=== PATIENT | female | born 2000 | race Caucasian/White ===

== ENCOUNTER 2020-04-22 13:20 | Emergency (ER) | payer MEDICAID, SELFPAY ==
[2020-04-22 13:55] VITALS: BP 143/88; PULSE 111; RESP 18; TEMP 36.2; O2SAT 100; BMI 25.2
--- NOTE | 2020-04-22 15:55 | W.ED.PREGNAN ---
HPI - General: Chief complaint: Abdominal Pain Stated complaint: Vaginal Bleeding/17 wks Time Seen by Provider: 04/22/20 13:58 History of Present Illness: HPI Narrative: 19-year-old female presents emergency room with complaining of some pelvic cramping. She had some vaginal bleeding about 2 weeks ago she is not bleeding at all now it seems to have stopped. She is approximately 14 to 6 weeks . She had recently moved to the area she not established with a new OB yet. Bleeding was very light and brief 2 weeks ago she denies any dysuria urgency or frequency she denies any fever sweats or chills. She has previously had an intrauterine confirmed on ultrasound. MD Complaint: vaginal bleeding (2 weeks ago) Onset (ago): week(s) Pain Consistency: intermittent Location: pelvis (Cramping) Quality: Cramping Relieving factors: none Exacerbating factors: none Vaginal discharge: none Vaginal bleeding: none Patient : Yes OB History - Current : no complications OB History - Previous Pregnancies: miscarriage (First trimester) Associated symptoms: Deny abdominal pain, dyspareunia, dysuria, headache(s), malaise, nausea, rash, seizures, short of breath, syncope, vaginal bleeding, vaginal discharge, visual changes, vomiting or weakness Review of Systems Const: Denies: malaise ENMT: Denies: throat pain, ear or mastoid pain, nasal discharge or nasal congestion Card: Denies: syncope Resp: Denies: dyspnea, productive cough or non-productive cough GI: Denies: abdominal pain, nausea or vomiting : Denies: dysuria, vaginal discharge or dyspareunia Skin/Breast: Denies: rash or pruritus Neuro: Denies: headache(s) Physical Exam Const: COMMON NORMALS: no acute distress GENERAL APPEARANCE: cooperative and comfortable ORIENTATION/CONSCIOUSNESS: Yes awake, Yes oriented to person, Yes oriented to place and Yes oriented to time HENMT: COMMON NORMALS: normocephalic, atraumatic and hearing grossly normal bilaterally HEAD & SCALP: normocephalic and atraumatic Eye: COMMON NORMALS: Equal, round and reactive pupils present, EOMs intact bilaterally, conjunctivae normal and no scleral icterus CONJUNCTIVA: Yes conjunctivae normal PUPIL: Yes Equal, round and reactive pupils present Neck/C-Spine: COMMON NORMALS: full ROM, no lymphadenopathy, supple and no JVD Lymph: LYMPHATIC: no lymphadenopathy noted and no lymphedema noted Resp: COMMON NORMALS: normal respiratory effort, No retractions, No use of accessory muscles and clear to auscultation bilaterally AUSCULTATION: clear to auscultation bilaterally Cardio: COMMON NORMALS: no JVD, regular rate, regular rhythm and No murmurs present (Cardio) RATE: regular rate RHYTHM: regular rhythm GI: COMMON NORMALS: Soft to palpation and No hepatosplenomegaly present AUSCULTATION: Yes normoactive bowel sounds PALPATION: Yes Soft to palpation, No Tenderness to palpation present (GI), No Guarding due to palpation present (GI) and Yes No hepatosplenomegaly present : SPECULUM EXAM - VAGINA: No vaginal bleeding OB/EXTERNAL & SPECULUM: No vaginal bleeding Extremity: COMMON NORMALS: normal to inspection, capillary refill normal, no clubbing, cyanosis or edema, no calf tenderness and no pedal edema Neuro: SENSORIUM/ORIENTATION: Yes oriented to person, Yes oriented to place and Yes oriented to time Skin: COMMON NORMALS: no rashes or lesions noted GENERAL SKIN EXAM: no rashes or lesions noted Course Vital Signs: Vital signs: Vital Signs Temperature 97.2 F L 04/22/20 13:55 Pulse Rate 111 H 04/22/20 13:55 Respiratory Rate 18 04/22/20 13:55 Blood Pressure 143/88 04/22/20 13:55 Pulse Oximetry 100 04/22/20 13:55 MDM - OB/Uterine Contractions MDM Narrative: Medical decision making narrative: Beta-hCG in the normal range heart tones good Rh+ discharge home and will have case management help her set up with a HOME HEALTH ATTENDANT in [facility]. Lab Data: Labs: Lab Results 04/22/20 04/22/20 04/22/20 Range/Units 15:55 15:55 15:55 WBC 11.9 (4.5-13.0) 10^3/ uL RBC 4.44 (4.1-5.3) 10^6/u L Hgb 13.7 (11.5-15.3) g/dL Hct 39.8 (37.0-47.0) % MCV 89.6 (81-99) fL MCH 30.9 (28.0-34.0) pg MCHC 34.4 (30.0-36.0) g/dL RDW 11.9 L (12.1-15.1) % Plt Count 263 (130-400) 10^3/c mm MPV 10.7 H (7.4-10.4) fL Neut % (Auto) 81.2 % Lymph % (Auto) 13.0 % [place] % (Auto) 5.0 % Eos % (Auto) 0.2 % Baso % (Auto) 0.1 % Neut # (Auto) 9.68 H (1.8-8.0) 10^3/u L Lymph # (Auto) 1.6 (1.5-6.5) 10^3/u L [place] # (Auto) 0.6 (0.2-0.9) 10^3/u L Eos # (Auto) 0.0 (0.0-0.8) 10^3/u L Baso # (Auto) 0.0 (0.0-0.1) 10^3/u L Nucleated RBC % (a uto) 0 % Nucleated RBCs # 0.0 /100WBC Sodium 137 (136-145) mmol/L Potassium 3.7 (3.5-5.1) mmol/L Chloride 105 (98-107) mmol/L Carbon Dioxide 21 L (22-29) mmol/L Anion Gap 14.7 (5-19) BUN 6 (6-20) mg/dL Creatinine 0.4 L (0.5-0.9) mg/dL GFR Calculation 205.6 H (90-130) mL/min Glucose 77 (65-115) mg/dL Calculated Osmolal ity 280 L (285-295) mOsm/k g Calcium 9.0 (8.5-10.5) mg/dL Total Bilirubin 0.3 (0.15-1.2) mg/dL AST 18 (0-32) U/L ALT 31 (0-33) U/L Alkaline Phosphata se 76 (35-105) IU/L Total Protein 6.7 (6.6-8.7) g/dL Albumin 3.6 (3.5-5.2) g/dL Globulin 3.1 (1.3-4.6) g/dL Ser , [place] [address].00 mIU/mL Rho(D) Type Positive Discharge Plan Discharge Patient Disposition: Home Clinical Impression: Second trimester Condition: Stable Prescriptions: No Action multivitamin Tablet 1 tab PO DAILY RF: 0 Discharge Orders: Discharge Order (Routine); Ordered 04/22/20 Ordered By: Moose Regalado Activity Restrictions/Additional Instructions: This management will call to assist with establishing with a new will be doctor in [facility]. Coding Level of Care Code ED C Web Developer for Henok Fwd Exam Comprehensive
[2020-04-22 16:09] LABS: Basophils % 0.1 %; Eosinophils % 0.2 %; Hematocrit 39.8 % (37.0-47.0); Hemoglobin 13.7 g/dL (11.5-15.3); Lymphocytes # 1.6 10^3/uL (1.5-6.5); Mean Corpuscular HGB Conc 34.4 g/dL (30.0-36.0); Mean Corpuscular Hemoglobin 30.9 pg (28.0-34.0); Mean Corpuscular Volume 89.6 fL (81-99); Mean Platelet Volume 10.7 fL (7.4-10.4); Monocytes # 0.6 10^3/uL (0.2-0.9); Neutrophils # 9.68 10^3/uL (1.8-8.0); Neutrophils % 81.2 %; Nucleated Red Blood Cells % 0 %; Platelet Count 263 10^3/cmm (130-400); Red Blood Count 4.44 10^6/uL (4.1-5.3); Red Cell Distribution Width 11.9 % (12.1-15.1); White Blood Count 11.9 10^3/uL (4.5-13.0)
--- NOTE | 2020-04-22 16:12 | PC.NURSE ---
heart tones 168 BPM.
[2020-04-22 16:45] LABS: Alanine Aminotransferase 31 U/L (0-33); Albumin Level 3.6 g/dL (3.5-5.2); Alkaline Phosphatase 76 IU/L (35-105); Anion Gap 14.7 (5-19); Aspartate Amino Transferase 18 U/L (0-32); Blood Urea Nitrogen 6 mg/dL (6-20); Carbon Dioxide 21 mmol/L (22-29); Chloride 105 mmol/L (98-107); Globulin 3.1 g/dL (1.3-4.6); Glomerular Filtration Rate 205.6 mL/min (90-130); Glucose 77 mg/dL (65-115); Osmolality Calculated 280 mOsm/kg (285-295); Potassium 3.7 mmol/L (3.5-5.1); Sodium 137 mmol/L (136-145); Total Bilirubin 0.3 mg/dL (0.15-1.2); Total Protein 6.7 g/dL (6.6-8.7)
[2020-04-22 17:30] VITALS: BP 112/80; PULSE 80; RESP 15; O2SAT 97
--- NOTE | 2020-04-23 10:30 | DCPLANNER ---
customer engagement manager had message to schedule a follow up appointment for patient with [facility]. customer engagement manager called the [facility], spoke with Aurelia, gave clinic patients information. customer engagement manager was told that patients information would be printed and reviewed. Clinic will call patient with appointment information.
--- NOTE | 2020-05-03 10:48 | DCPLANNER ---
hair or beauty salon manager called [facility] to confirm that a follow up appointment was scheduled for patient. hair or beauty salon manager was told that clinic called patient and is waiting to patient to get financial clearance or medicaid before being seen. Patient is to call clinic when an appointment can be scheduled.
== END 2020-04-22 17:31 | disposition home or self-care (01) ==
PROVIDERS: Emergency Provider Family Medicine
DX: O26.892 Other specified pregnancy related conditions, second trimester (principal); R10.2 Pelvic and perineal pain; Z3A.17 17 weeks gestation of pregnancy
CPT/HCPCS: 12345; 80053; 84702; 85025; 99282

== ENCOUNTER 2020-06-24 04:57 | Observation (INO) | payer BC, MEDICAID, SELFPAY ==
[2020-06-24] VITALS (37 sets, daily range): BP systolic 110–138; BP diastolic 59–92; PULSE 66–106; RESP 18; TEMP 36.1–36.6; O2SAT 97–100; BMI 26.1
--- NOTE | 2020-06-24 02:45 | USR_ITS ---
PROCEDURE INFORMATION: Exam: US , Limited Exam date and time: 06/24/2020 3:48 AM Age: 19 years old Clinical indication: Lmp or gestational age (in weeks): 26w1d; Antepartum complications; Other: Passing clots; ; Patient HX: PT stated she passed two clots and is still bleeding; Additional info: Bleeding, placenta location. Reportedly has known low placenta from outside exams. TECHNIQUE: Imaging protocol: Real-time ultrasound of the maternal uterus with image documentation. Exam focused on the clinical indication. COMPARISON: No relevant prior studies available. FINDINGS: Single living fetus in variable position. heart activity documented by the technologist, 153 bpm. Amniotic fluid volume appears within normal limits. Anterior placenta. On the provided images, the placenta appears to be low lying versus marginal previa. The orientation/relationship of the placenta with the cervix is not well visualized on transabdominal scanning. Endovaginal scanning might better evaluate, as clinically directed. No other definite/visible placental abnormality on the provided images. Cervical length was estimated with transabdominal scanning, measuring approximately 3.5 cm. No definite cervical canal dilation or fluid on the provided images. measurements were not obtained at this time. Evaluation of anatomy was not performed at this time. No visible maternal adnexal abnormality. The urinary bladder was not completely evaluated/imaged at this time. US/ OB limited [id number] IMPRESSION: 1. Single living fetus, details above. 2. Anterior placenta. Suspect a low lying placenta versus marginal placenta previa. Please see above discussion. 3. Amniotic fluid volume appears within normal limits. 4. Other details discussed above.
[2020-06-24 05:21] LABS: Basophils % 0.2 %; Eosinophils # 0.1 10^3/uL (0.0-0.8); Eosinophils % 0.7 %; Hemoglobin 13.7 g/dL (11.5-15.3); Lymphocytes # 2.4 10^3/uL (1.5-6.5); Lymphocytes % 17.9 %; Mean Corpuscular HGB Conc 34.3 g/dL (30.0-36.0); Mean Corpuscular Hemoglobin 31.6 pg (28.0-34.0); Mean Corpuscular Volume 92.4 fL (81-99); Monocytes # 0.9 10^3/uL (0.2-0.9); Monocytes % 6.7 %; Neutrophils # 9.99 10^3/uL (1.8-8.0); Neutrophils % 74.2 %; Nucleated Red Blood Cells % 0 %; Platelet Count 297 10^3/cmm (130-400); Red Blood Count 4.33 10^6/uL (4.1-5.3); Red Cell Distribution Width 12.6 % (12.1-15.1); White Blood Count 13.5 10^3/uL (4.5-13.0)
[2020-06-24] MEDS: betamethasone susp 6 mg/mL 5 mL 12 MG IM (05:31)
[2020-06-24 05:34] LABS: INR 0.95 (0.8-1.2)
[2020-06-24 05:45] LABS: Alanine Aminotransferase 9 U/L (0-33); Albumin Level 3.6 g/dL (3.5-5.2); Alkaline Phosphatase 75 IU/L (35-105); Anion Gap 12.7 (5-19); Aspartate Amino Transferase 15 U/L (0-32); Blood Urea Nitrogen 7 mg/dL (6-20); Calcium 8.8 mg/dL (8.5-10.5); Carbon Dioxide 23 mmol/L (22-29); Chloride 102 mmol/L (98-107); Globulin 3.4 g/dL (1.3-4.6); Glomerular Filtration Rate 205.6 mL/min (90-130); Glucose 128 mg/dL (65-115); Osmolality Calculated 278 mOsm/kg (285-295); Potassium 3.7 mmol/L (3.5-5.1); Sodium 134 mmol/L (136-145); Total Bilirubin 0.2 mg/dL (0.15-1.2)
[2020-06-24] MEDS: lactated ringers 1,000 ML 999 ML IV ×2 (05:51→07:45)
[2020-06-24] MEDS: dextrose 5%-lactated ringers 1,000 ML 125 ML IV (06:22)
--- NOTE | 2020-06-24 08:40 | P.HP_ITS ---
Providers/Chief Complaint Chief Complaint: Vaginal bleeding History of Present Illness Shannan Valdovinos is a 19 year old at 26.1 weeks gestation by LMP with an ERNESTINE of 09/29/2020 per patient. Her is complicated by low-lying placenta with possible marginal placenta previa with intermittent bleeding throughout . The patient sees Dr. Henrry Carballo in [place] and presented to [facility] in [place], [place] secondary to vaginal bleeding and living closer to our facility. The patient states that she has had spotting every week or so during , however this time she had passed to half dollar size clots vaginally at approximately 1 AM on 06/24/2020. She then had bleeding that continued after this. She has changed her pad 4 times over the last 7 h. It has covered a 4 to 5 in x 1 in area on the pad each time approximately. The patient has started to have contractions over the last couple of hours and are now every 3 to 7 min. She is starting to be able to feel them. Ultrasound shows findings concerning for a marginal placenta previa versus low-lying placenta. No other abnormalities were appreciated. The patient denies fever, chest pain, cough, shortness of breath, nausea, vomiting, diarrhea, constipation, dysuria. She admitted to intercourse the night before this started. Medications/Allergies Home Medications Medication Instructions Recorded Confirmed Last Taken Type multivitamin 1 tab PO DAILY 04/22/20 04/22/20 04/21/20 History + DHA 1 tab PO DAILY 06/24/20 06/24/20 1 Day Ago History ~06/23/20 Allergies Allergy/AdvReac Type Severity Reaction Status Date / Time No Known Allergies Allergy Verified 06/24/20 03:18 PFSH Acute PFSH: Surgical History (Updated 06/24/20 @ 08:52 by Henrry Marte MD) No pertinent past surgical history Female Reproductive History: : 2 Vitals/I&O/Wt Last Vital Signs Temp 97.8 F 06/24/20 06:28 Pulse 75 06/24/20 08:11 BP 114/63 06/24/20 08:11 Pulse Ox 99 06/24/20 04:05 06/23/20 06/24/20 06/24/20 22:59 06:59 14:59 Intake Total 532.8 / 532.8 191.667 / 191.667 Balance 532.8 / 532.8 191.667 / 191.667 Weight last 48 hrs Weight 152 lb Physical Exam Narrative: EXAM NARRATIVE: General: Alert and oriented x3 Eyes: Pupils equal round and reactive to light and accommodation Mouth: Mucous membranes moist, pharynx non-erythematous Cardiac: Regular rate and rhythm without murmurs Lungs: Clear to auscultation bilaterally without wheezes, crackles or rhonchi Abdomen: Soft, non-tender, fundus consistent with gestational age, moderate firmness with contractions. Extremities: Trace edema in the bilateral lower extremities Data : 06/24/20 05:10 06/24/20 05:10 A&P Additional A&P Information The patient is currently having symptoms consistent with a placental abruption with a complication of a marginal placenta previa versus low-lying uterus that is anterior. Currently heart tones are in the mid 150s with moderate variability and good accelerations. It is a category 1 tracing. Contractions are every 3 to 7 minutes. The patient received 1 dose of betamethasone at 5:31 AM on 06/24/2020. She will need another dose in 24 hours. The patient has been given 2 fluid boluses to try to slow down contractions and they have mildly helped, however not significantly. I am concerned that the patient is continuing to have bleeding with contractions and that her risk for delivery is increasing. For this reason I discussed with her the need for transfer to a higher level of care where a NICU is available. The patient is in agreement with this at this time. I will contact the nearest facility and plan for transfer. I will discuss with them if they would like to have terbutaline or another medication started for the contractions. The patient cervix on ultrasound was 3.5 cm in length and ultrasound did not show signs of dilation as a digital exam was not done secondary to her bleeding. All questions were answered. We will proceed with the above plan. Attestations Medical Necessity Statement*: The patient will be transferred secondary to the above. Her stay will not cross 2 midnights here. Coding Level of Care Code Acute Picker Box Operator for Henok Snowden
[2020-06-24] MEDS: NIFEdipine 10 mg Capsule PO (09:19)
--- NOTE | 2020-06-24 10:29 | PC.NURSE ---
Pt left via stretched with [facility] personnel.
== END 2020-06-24 10:29 | disposition intermediate care facility (04) ==
LOC: OPOB 09:05 → OBGYN 09:05
PROVIDERS: Admitting Provider Family Medicine; Visit Provider Family Medicine
DX: O44.42 Low lying placenta NOS or without hemorrhage, second trimester (principal); Z3A.26 26 weeks gestation of pregnancy
CPT/HCPCS: 36415; 76815; 80053; 85025; 85610; 96372; 99211; G0378; J0702

== ENCOUNTER → 2021-05-11 10:24 | Outpatient (BNVA) | payer BC, MEDICAID, SELFPAY | PROVIDERS: Visit Provider Registered Nurse Neonatal Intensive Care | DX: J02.9 Acute pharyngitis, unspecified (principal) | CPT/HCPCS: 87880 ==

== ENCOUNTER → 2021-10-27 11:38 | Outpatient (BNVA) | payer BC, MEDICAID, SELFPAY | PROVIDERS: Visit Provider Registered Nurse Neonatal Intensive Care | DX: J02.0 Streptococcal pharyngitis (principal) | CPT/HCPCS: 87880 ==

== ENCOUNTER → 2021-11-11 10:31 | Outpatient (BNVA) | payer BC, MEDICAID, SELFPAY | PROVIDERS: Visit Provider Registered Nurse Neonatal Intensive Care | DX: J02.0 Streptococcal pharyngitis (principal) | CPT/HCPCS: 87880 ==

== ENCOUNTER → 2021-12-24 10:09 | Outpatient (BNVA) | payer BC, MEDICAID, SELFPAY | PROVIDERS: Visit Provider Registered Nurse Neonatal Intensive Care | DX: J02.9 Acute pharyngitis, unspecified (principal) | CPT/HCPCS: 87071; 87880 ==

== ENCOUNTER → 2021-12-24 10:09 | Outpatient (BNVA) | payer BC, MEDICAID, SELFPAY | PROVIDERS: Visit Provider Registered Nurse Neonatal Intensive Care | DX: Z01.89 Encounter for other specified special examinations (principal); J02.9 Acute pharyngitis, unspecified | CPT/HCPCS: 87071 ==

== ENCOUNTER → 2022-01-14 10:19 | Outpatient (BNVA) | payer BC, MEDICAID, SELFPAY | PROVIDERS: Visit Provider Emergency Medicine | DX: J02.9 Acute pharyngitis, unspecified (principal); B34.9 Viral infection, unspecified | CPT/HCPCS: 87426; 87880 ==

== ENCOUNTER → 2022-01-20 10:35 | Outpatient (BNVA) | payer BC, MEDICAID, SELFPAY | PROVIDERS: PCP Family Medicine; Visit Provider Family Medicine | DX: M94.0 Chondrocostal junction syndrome [Tietze] (principal); R00.2 Palpitations; Z76.89 Persons encountering health services in other specified circumstances | CPT/HCPCS: 80053; 80061; 84443; 85025 ==

== ENCOUNTER 2022-01-24 21:07 | Emergency (ER) | payer BC, MEDICAID, SELFPAY ==
[2022-01-24 21:38] VITALS: BP 151/94; PULSE 92; RESP 16; TEMP 36.9; O2SAT 99; BMI 25.7
[2022-01-24 22:32] LABS: Add Urine Microscopic? YES; Bilirubin Urine Neg (Negative); Blood Urine 3+ (Negative); Glucose Urine UA Norm (Normal); Ketones Urine Negative (Negative); Leukocyte Esterase Urine Negative (Negative); Nitrate Urine Negative (Negative); Protein Urine Neg (Negative); Urine Appearance Clear (CLEAR); Urine Color Yellow (Yellow); Urobilinogen Urine Norm (Negative); pH Urine 5 (5-7)
[2022-01-24 22:33] LABS: Bacteria Urine 1+ /hpf; RBC Urine 0-4 /hpf (0-2); Squamous Epithelial Cell Urine 0-4 /hpf (0-5); WBC Urine 0-4 /hpf (0-5)
[2022-01-24 22:34] LABS: Add Urine Culture? No; Coarse Granular Casts Urine 0-4 /lpf; Mucus Urine 1+ /hpf
== END 2022-01-24 23:06 | disposition left against medical advice (07) ==
LOC: ER 21:14
PROVIDERS: Emergency Medicine; Emergency Provider Family Medicine
DX: Z53.21 Procedure and treatment not carried out due to patient leaving prior to being seen by health care provider (principal)
CPT/HCPCS: 81001; 81025

== ENCOUNTER → 2022-04-29 13:14 | Outpatient (BNVA) | payer BC, MEDICAID, SELFPAY | PROVIDERS: Visit Provider Registered Nurse Neonatal Intensive Care | DX: J02.9 Acute pharyngitis, unspecified (principal) | CPT/HCPCS: 87071; 87880 ==

== ENCOUNTER → 2022-07-17 10:06 | Outpatient (BNVA) | payer BC, MEDICAID, SELFPAY | PROVIDERS: Visit Provider Emergency Medicine | DX: J02.9 Acute pharyngitis, unspecified (principal); J06.9 Acute upper respiratory infection, unspecified | CPT/HCPCS: 87071; 87880 ==

== ENCOUNTER 2022-09-04 08:47 | Emergency (ER) | payer BC, MEDICAID, SELFPAY ==
[2022-09-04 09:09] VITALS: BP 142/92; PULSE 104; RESP 16; TEMP 37.2; O2SAT 99
--- NOTE | 2022-09-04 09:13 | ED_ITS ---
HPI - URI/Sore Throat General: Chief Complaint: Upper Respiratory Infection Stated Complaint: sore throat Time Seen by Provider: 09/04/22 08:49 History of Present Illness: Patient is a 22-year-old female comes to the ED with a sore throat. Symptoms started approximately 5 days ago. She has been having some nasal congestion and drainage as well that causes her to cough sometimes. Denies any fevers, nausea/vomiting, chills, abdominal pain, bladder or bowel symptoms. Associated symptoms: Deny abdominal pain, chills, chest pain, diarrhea, fever(s), headache(s), nasal congestion, nausea or vomiting Review of Systems Const: Denies: fever(s), chills or fatigue Eyes: Denies: change in vision or eye discomfort ENMT: Reports: throat pain and enlarged tonsils; Denies: odynophagia, nasal discharge or nasal congestion Card: Denies: chest pain, palpitations, edema, swelling of feet/ankles, dyspnea on exertion or orthopnea Resp: Denies: dyspnea, productive cough or non-productive cough GI: Denies: abdominal pain, nausea, vomiting, diarrhea, constipation or hematochezia : Denies: flank pain, dysuria or hematuria Musc: Denies: neck pain, back pain or extremity swelling Skin/Breast: Denies: rash or new lesions Neuro: Denies: headache(s), numbness in extremities or weakness in extremities PFSH ED PFSH: Medical History Situational anxiety Surgical History No pertinent past surgical history Family History Mother Smoker Social History Smoking and tobacco status: current every day smoker (vape) Second hand smoke exposure: No Smoking risk assessment/counseling performed?: No Alcohol intake: current Alcohol intake frequency: holidays/special occasions only Desire information about alcohol rehabilitation?: No Counseling given: No Desire information about substance/drug rehabilitation?: No Counseling given: No Adopted: No Caregiver/support person: No Lives independently: Yes Household members: family Housing: House Marital status: Single Number of children: 1 Highest education level completed: High School Graduate service: No Current occupational status: employed Female Reproductive History: Para: 1 Spontaneous abortions: Yes Physical Exam Const: COMMON NORMALS: no acute distress, patient oriented x3 and alert GENERAL APPEARANCE: cooperative and comfortable HENMT: COMMON NORMALS: normocephalic HEAD & SCALP: normocephalic MOUTH: Normal oral and palatal mucosa present THROAT: uvula midline, abnormal tonsil left erythema, exudates and hypertrophy 2+ and posterior oropharynx abnormal edema and erythema Neck/C-Spine: COMMON NORMALS: supple GENERAL: Yes normal visual inspection Resp: COMMON NORMALS: normal respiratory effort, No retractions, No use of accessory muscles and clear to auscultation bilaterally AUSCULTATION: clear to auscultation bilaterally Cardio: COMMON NORMALS: regular rate, regular rhythm, S1 normal heart sound present, S2 normal heart sound present, No gallops present (Cardio), No clicks present (Cardio), No murmurs present (Cardio) and Peripheral pulses 2+ throughout RATE: regular rate RHYTHM: regular rhythm HEART SOUNDS: S1 normal heart sound present and S2 normal heart sound present PERIPHERAL PULSES: Peripheral pulses 2+ throughout GI: COMMON NORMALS: Normal to inspection, nondistended, normoactive bowel sounds present, Soft to palpation, non-tender and no masses PALPATION: Yes Soft to palpation : COMMON NORMALS: Yes no CVA tenderness BLADDER/KIDNEY EXAM: Yes no CVA tenderness Back/Pelvis: COMMON NORMALS: no CVA tenderness Extremity: COMMON NORMALS: normal to inspection Neuro: COMMON NORMALS: patient oriented x3 SENSORIUM/ORIENTATION: Yes alert GAIT: Yes Normal gait present Skin: GENERAL SKIN EXAM: dry skin Course Vital Signs: Vital signs: Vital Signs Temperature 99.0 F 09/04/22 10:14 Pulse Rate 104 H 09/04/22 10:14 Respiratory Rate 16 09/04/22 10:14 Blood Pressure 142/92 09/04/22 10:14 Pulse Oximetry 99 09/04/22 10:14 Oxygen Delivery Me thod 09/04/22 09:09 MDM - URI/Sore Throat Medical Decision Making Patient is a 22-year-old female comes to the ED with a sore throat. Symptoms started approximately 5 days ago. She has been having some nasal congestion and drainage as well that causes her to cough sometimes. Denies any fevers, nausea/vomiting, chills, abdominal pain, bladder or bowel symptoms. Vitals are stable. Posterior oropharynx has edema and erythema and left tonsil is erythema exudate and hypertrophy. Rest of exam is benign and patient appears nontoxic in no acute distress. Strep was negative. Patient was diagnosed with pharyngitis and given the exam findings I would put her on an antibiotic. Follow-up with PCP in the next week for reevaluation. Return to ED precautions given. Patient understood and agreed with plan. Lab Data I reviewed the patient's lab results. Laboratory Results Group A Strep Rapid Negative (Negative) 09/04/22 09:25 Discharge Plan Discharge Patient Disposition: Home Clinical Impression: Pharyngitis Qualifiers: Pharyngitis/tonsillitis etiology: unspecified etiology Qualified Code(s): J02.9 - Acute pharyngitis, unspecified Condition: Stable Prescriptions: New Augmentin 500-125 mg tablet 1 tab PO BID 7 Days Qty: 14 0RF No Action clindamycin phosphate [Cleocin T] 1 % lotion 1 applic topical DAILY Qty: 60 0RF venlafaxine [Effexor XR] 75 mg capsule,extended release 24hr 75 mg PO QAM Qty: 30 0RF propranolol 10 mg tablet 10 mg PO BID Qty: 60 0RF Discharge Orders: Discharge ED (Routine); Ordered 09/04/22 Ordered By: Henrry Rahman Referrals: Leia Gustafson, MARKET ANALYSIS DIRECTOR-C [Primary Care Provider] - Discharge Diet: Regular Discharge Activity: Increase activity as tolerated Patient Instructions: Pharyngitis (ED) Activity Restrictions/Additional Instructions: Follow-up with medical provider as directed. Take medications as prescribed. Return to the ER or your medical provider if condition worsens. Please read and understand discharge instructions. Thank you for choosing [facility] for your healthcare needs today. Please realize this is an emergency room and that we are providing you with a medical screening exam and this may not be complete and all inclusive of all the testing and or work up that you may need to determine your ailment or severity of your illness. It is very important that you follow up as instructed or that you return to the Emergency Department should you have concerns or if your condition changes or worsens in any way. Coding Level of Care Code ED Fireworks Inspector for Henok Snowden
[2022-09-04 09:54] LABS: Rapid Strep A Test Negative (Negative)
[2022-09-04 10:14] VITALS: BP 142/92; PULSE 104; RESP 16; TEMP 37.2; O2SAT 99
== END 2022-09-04 10:15 | disposition home or self-care (01) ==
PROVIDERS: Emergency Provider Physician Assistant; PCP Nurse Practitioner
DX: J02.9 Acute pharyngitis, unspecified (principal); F17.290 Nicotine dependence, other tobacco product, uncomplicated
CPT/HCPCS: 87081; 87880; 99283

== ENCOUNTER → 2023-01-03 10:46 | Outpatient (BNVA) | payer BC, MEDICAID, SELFPAY | PROVIDERS: PCP Nurse Practitioner; Visit Provider Registered Nurse Neonatal Intensive Care | DX: J02.9 Acute pharyngitis, unspecified (principal) | CPT/HCPCS: 87880 ==

== ENCOUNTER → 2023-03-24 11:45 | Outpatient (BNVA) | payer BC, MEDICAID, SELFPAY | PROVIDERS: PCP Nurse Practitioner; Visit Provider Nurse Practitioner | DX: J02.9 Acute pharyngitis, unspecified (principal); J06.9 Acute upper respiratory infection, unspecified | CPT/HCPCS: 87880 ==

== ENCOUNTER → 2023-09-01 13:14 | Outpatient (BNVA) | payer BC, SELFPAY | PROVIDERS: PCP Nurse Practitioner; Visit Provider Nurse Practitioner Women's Health | DX: Z12.4 Encounter for screening for malignant neoplasm of cervix (principal); Z11.3 Encounter for screening for infections with a predominantly sexual mode of transmission | CPT/HCPCS: 87491; 87591; 88175 ==

== ENCOUNTER 2023-09-19 13:05 | Emergency (ER) | payer SELFPAY ==
[2023-09-19 13:10] VITALS: BP 159/108; PULSE 93; RESP 12; TEMP 36.7; O2SAT 98; BMI 26.7
--- NOTE | 2023-09-19 13:16 | XRR_ITS ---
PROCEDURE INFORMATION: Exam: XR Chest Exam date and time: 09/19/2023 2:01 PM Age: 23 years old Clinical indication: Pain; Angina pectoris; Additional info: Chest pain TECHNIQUE: Imaging protocol: Radiologic exam of the chest. Views: 1 view. COMPARISON: No relevant prior studies available. FINDINGS: Lungs: Lungs are clear bilaterally. Pleural spaces: No pleural effusion. No pneumothorax. Heart/Mediastinum: The cardiac silhouette and mediastinal contours are unremarkable. Bones/joints: Unremarkable for age. XR/XR chest 1V portable [id number] IMPRESSION: Negative chest radiograph.
--- NOTE | 2023-09-19 13:17 | ECG_ITS ---
[facility] Test Date: 2023-09-19 Pat Name: Shannan Valdovinos Department: Room: Gender: Female Director Of Epidemiology: : 2000 Requested By: Deanne Rob Order Number: [id number] Naya MD: Tk Anrdade M.D. Measurements Intervals [place] Rate: 90 P: 60 VT: 128 QRS: 77 QRSD: 78 T: 32 QT: 342 QTc: 420 Interpretive Statements SINUS RHYTHM WITH SINUS ARRHYTHMIA NONSPECIFIC ST & T-WAVE ABNORMALITY No previous ECG available for comparison Electronically Signed On 09-20-2023 14:59:17 CDT by Tk Andrade M.D. [id number]
--- NOTE | 2023-09-19 13:21 | ED_ITS ---
HPI - Chest Pain 2 General: Chief Complaint: Chest Pain Stated Complaint: Chest pains Time Seen by Provider: 09/19/23 13:13 History of Present Illness: 23-year-old female who presents emergenc y room with chest pain/tightness some inspiratory discomfort and shortness of breath. Is been present for couple of days now. No cough. No fever. No abdominal pain. No nausea or vomiting. control was initiated a few days ago. Review of Systems 2 Narrative: Constitutional symptoms: Negative except as documented in HPI. Skin symptoms: Negative except as documented in HPI. Eye symptoms: Negative except as documented in HPI. ENMT symptoms: Negative except as documented in HPI. Respiratory symptoms: Negative except as documented in HPI. Cardiovascular symptoms: Negative except as documented in HPI. Gastrointestinal symptoms: Negative except as documented in HPI. Genitourinary symptoms: Negative except as documented in HPI. Musculoskeletal symptoms: Negative except as documented in HPI. Neurologic symptoms: Negative except as documented in HPI. Psychiatric symptoms: Negative except as documented in HPI. Endocrine symptoms: Negative except as documented in HPI. PFSH ED 2 PFSH: Medical History (Updated 09/19/23 @ 14:28 by Deanne Cameron MD) Acne Situational anxiety Surgical History (Updated 09/17/23 @ 11:39 by TEETEE Silva) H/O section Family History Mother Smoker Hypertension Denies family history of Colon cancer Ovarian cancer Diabetes Heart disease Hyperlipidemia Breast cancer Uterine cancer Thyroid disease Stroke Social History Smoking and tobacco/nicotine status: current every day tobacco/nicotine user (vape) Second hand smoke exposure: No Alcohol intake: current Alcohol intake frequency: holidays/special occasions only Substance/Drug Use: never Adopted: No Caregiver/support person: No Lives independently: Yes Household members: family Housing: House Marital status: Single Number of children: 1 Highest education level completed: High School Graduate service: No Current occupational status: employed Female Reproductive History: Para: 1 Spontaneous abortions: Yes Physical Exam 2 Narrative: EXAM NARRATIVE: General: Alert, no acute distress. Skin: Warm, dry. Head: Normocephalic, atraumatic. Neck: Supple, trachea midline. Eye: Extraocular movements are intact. Ears, nose, mouth and throat: mucosa moist. Cardiovascular: Regular, Normal peripheral perfusion. Respiratory: Lungs are clear to auscultation, respirations are non-labored, breath sounds are equal, Symmetrical chest wall expansion. Gastrointestinal: Soft, Nontender, Non distended, Normal bowel sounds. Musculoskeletal: Normal ROM, no deformity. Neurological: Alert and oriented, No focal neurological deficit observed. Psychiatric: Cooperative, appropriate mood & affect. Course 2 Vital Signs: Vital signs: Vital Signs Temperature 98.1 F 09/19/23 13:10 Pulse Rate 93 09/19/23 13:10 Respiratory Rate 12 09/19/23 13:10 Blood Pressure 159/108 09/19/23 13:10 Pulse Oximetry 98 09/19/23 13:10 Oxygen Delivery Me thod Room Air 09/19/23 13:10 MDM - Chest Pain Medical Decision Making Differential diagnosis for patient with chest pain includes but is not limited to and based on the above HPI, review of systems and physical exam: Pneumonia. unstable angina. angina. Acute coronary syndrome / HI. Pulmonary embolism. Costochondritis / musculoskeletal. Pleurisy. Pericarditis. Esophageal spasm. Pancreatis. Cholecystitis. Workup: Lab work, chest X-ray and EKG ordered to evaluate, rule in and rule out above pathologies. Lab Review: Laboratory results were reviewed and interpreted by myself the emergency room physician. No leukocytosis. No anemia. No renal failure. D-dimer is negative. Flu and COVID are negative. EKG: Time 1312 rate 90. Normal sinus rhythm, No ST-T changes, no ectopy, normal MI & QRS intervals, This was reviewed and interpreted by myself the ER physician at 1315. Chest x-ray: No acute process. No infiltrate. No pneumothorax. No cardiomegaly. This was reviewed and interpreted by myself the ER physician. I reviewed the patient's medical record. Reexamination: Patient remained stable. No increased work of breathing. No altered mental status. Lab Data 09/19/23 13:27 09/19/23 13:27 Laboratory Results WBC 8.64 10^3/uL (3.29-11.43) 09/19/23 13:27 RBC 4.78 10^6/uL (3.85-5.65) 09/19/23 13:27 Hgb 14.90 g/dL (11.27-16.99) 09/19/23 13:27 Hct 42.2 % (36-47) 09/19/23 13: MCV 88.3 fl (85-98) 09/19/23 13:27 MCH 31.2 pg (27-33) 09/19/23 13: MCHC 35.3 g/dL (30-55) 09/19/23 13: RDW 11.6 % (12.1-15.1) L 09/19/23 13: Plt Count 304 10^3/cmm (157-399) 09/19/23 13: MPV 9.4 fL (7.4-10.4) 09/19/23 13: Neut % (Auto) 73.6 % 09/19/23 13: Lymph % (Auto) 18.6 % 09/19/23 13: [place] % (Auto) 6.5 % 09/19/23 13: Eos % (Auto) 0.8 % 09/19/23 13: Baso % (Auto) 0.3 % 09/19/23 13: Neut # (Auto) 6.35 10^3/uL (1.8-7.7) 09/19/23 13: Lymph # (Auto) 1.6 10^3/uL (0.8-4.8) 09/19/23 13: [place] # (Auto) 0.6 10^3/uL (0.2-0.9) 09/19/23 13: Eos # (Auto) 0.1 10^3/uL (0.0-0.8) 09/19/23 13: Baso # (Auto) 0.0 10^3/uL (0.0-0.1) 09/19/23 13: Nucleated RBC % (auto) 0 % 09/19/23 13: Nucleated RBCs # 0.0 /100WBC 09/19/23 13: D-Dimer 0.30 ug/mLFEU (0-0.59) 09/19/23 13:27 Sodium 134 mmol/L (136-145) L 09/19/23 13:27 Potassium 3.7 mmol/L (3.5-5.1) 09/19/23 13:27 Chloride 100 mmol/L (98-107) 09/19/23 13:27 Carbon Dioxide 24 mmol/L (22-29) 09/19/23 13:27 Anion Gap 13.7 (5-19) 09/19/23 13:27 BUN 10 mg/dL (6-20) 09/19/23 13:27 Creatinine 0.7 mg/dL (0.5-0.9) 09/19/23 13:27 GFR Calculation 103.7 mL/min (90-130) 09/19/23 13:27 Glucose 110 mg/dL (65-115) 09/19/23 13:27 Calculated Osmolality 278 mOsm/kg (285-295) L 09/19/23 13:27 Calcium 9.5 mg/dL (8.5-10.5) 09/19/23 13:27 Total Bilirubin 0.6 mg/dL (0.15-1.2) 09/19/23 13:27 AST 19 U/L (0-32) 09/19/23 13:27 ALT 40 U/L (0-33) H 09/19/23 13:27 Alkaline Phosphatase 73 U/L (35-105) 09/19/23 13:27 Troponin T Baseline < 6 ng/L (0-10) 09/19/23 13:27 C-Reactive Protein 3.0 mg/L (0.0-4.9) 09/19/23 13:27 Total Protein 7.9 g/dL (6.6-8.7) 09/19/23 13:27 Albumin 4.5 g/dL (3.5-5.2) 09/19/23 13:27 Globulin 3.4 g/dL (1.3-4.6) 09/19/23 13:27 HCG, Qual Negative (Negative) 09/19/23 13:47 Influenza Type A Ag negative (Negative) 09/19/23 13:39 Influenza Type B Ag negative (Negative) 09/19/23 13:39 SARS-CoV-2 Ag (Rapid) negative (Negative) 09/19/23 13:39 XR interpretation done by ED provider, pending radiology final review Other Data Assessment and plan: - Discharged home - Discussed plan with patient. Answered any questions. - Evaluation and treatment of this problem were appropriate in the emergency setting. Discharge Plan Discharge Patient Disposition: Home Clinical Impression: Atypical chest pain Condition: Stable Prescriptions: New dexamethasone 6 mg tablet 6 mg PO DAILY 5 Days Qty: 5 0RF No Action clindamycin phosphate [Cleocin T] 1 % lotion 1 applic topical DAILY Qty: 60 0RF spironolactone 50 mg tablet 50 mg PO BID Qty: 60 5RF YEHUDA (28) 3-0.02 mg tablet 1 tab PO QPM Discharge Orders: Discharge ED (Routine); Ordered 09/19/23 Ordered By: Deanne Cameron Referrals: Leia Gustafson, TEETEE [Primary Care Provider] - (You have been screened and evaluated and felt safe for discharge. Health conditions do change or evolve sometimes and as such it is important that you follow up with your Primary Doctor to be re checked, 3-5 days is a general good time frame for follow up. You are always welcome to return to the ED for re assessment if your symptoms are worsening or you have new concerns) Discharge Diet: Usual diet Discharge Activity: Resume usual activity Patient Instructions: Noncardiac Chest Pain (ED) Coding Level of Care Code ED Environmental Health And Safety Leader for Henok Snowden
[2023-09-19 13:33] LABS: Basophils % 0.3 %; Eosinophils # 0.1 10^3/uL (0.0-0.8); Eosinophils % 0.8 %; Hematocrit 42.2 % (36-47); Lymphocytes # 1.6 10^3/uL (0.8-4.8); Lymphocytes % 18.6 %; Mean Corpuscular HGB Conc 35.3 g/dL (30-55); Mean Corpuscular Hemoglobin 31.2 pg (27-33); Mean Corpuscular Volume 88.3 fl (85-98); Mean Platelet Volume 9.4 fL (7.4-10.4); Monocytes # 0.6 10^3/uL (0.2-0.9); Monocytes % 6.5 %; Neutrophils # 6.35 10^3/uL (1.8-7.7); Neutrophils % 73.6 %; Nucleated Red Blood Cells % 0 %; Platelet Count 304 10^3/cmm (157-399); Red Blood Count 4.78 10^6/uL (3.85-5.65); Red Cell Distribution Width 11.6 % (12.1-15.1); White Blood Count 8.64 10^3/uL (3.29-11.43)
[2023-09-19 13:54] LABS: HCG Qualitative Urine. Negative (Negative)
[2023-09-19 13:54] LABS: Alanine Aminotransferase 40 U/L (0-33); Albumin Level 4.5 g/dL (3.5-5.2); Alkaline Phosphatase 73 U/L (35-105); Anion Gap 13.7 (5-19); Aspartate Amino Transferase 19 U/L (0-32); Blood Urea Nitrogen 10 mg/dL (6-20); Calcium 9.5 mg/dL (8.5-10.5); Carbon Dioxide 24 mmol/L (22-29); Chloride 100 mmol/L (98-107); Creatinine Clr Calc Pharmacy 120.6108; Globulin 3.4 g/dL (1.3-4.6); Glomerular Filtration Rate 103.7 mL/min (90-130); Glucose 110 mg/dL (65-115); Osmolality Calculated 278 mOsm/kg (285-295); Potassium 3.7 mmol/L (3.5-5.1); Sodium 134 mmol/L (136-145); Total Bilirubin 0.6 mg/dL (0.15-1.2); Total Protein 7.9 g/dL (6.6-8.7)
[2023-09-19 13:55] LABS: Troponin(5th) Baseline < 6 ng/L (0-10)
[2023-09-19 14:08] LABS: Influenza A by IFA negative (Negative); Influenza B by IFA negative (Negative)
[2023-09-19 14:09] LABS: SARS Covid-2 Antigen negative (Negative)
== END 2023-09-19 14:39 | disposition home or self-care (01) ==
PROVIDERS: Emergency Provider Emergency Medicine; PCP Nurse Practitioner
DX: R07.89 Other chest pain (principal); Z11.52 Encounter for screening for COVID-19; F17.290 Nicotine dependence, other tobacco product, uncomplicated
CPT/HCPCS: 36415; 71045; 80053; 81025; 84484; 85025; 85378; 86140; 87426; 87804; 93005; 99285

== ENCOUNTER 2023-09-21 07:43 | Emergency (ER) | payer SELFPAY ==
--- NOTE | 2023-09-21 07:46 | ECG_ITS ---
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 Measurements Intervals [place] Rate: 96 P: 4 ND: 108 QRS: 35 QRSD: 75 T: 56 QT: 331 QTc: 420 Interpretive Statements SINUS RHYTHM WITH SHORT ND INTERVAL MODERATE ST DEPRESSION [0.05+ mV ST DEPRESSION] Compared to ECG 09/19/2023 13:12:14 Short ND interval now present ST (T wave) deviation now present Sinus arrhythmia no longer present T-wave abnormality no longer present Electronically Signed On 09-21-2023 21:40:54 CDT by Ryan Doyle M.D. [id number]
--- NOTE | 2023-09-21 07:46 | XRR_ITS ---
PROCEDURE INFORMATION: Exam: XR Chest Exam date and time: 09/21/2023 8:01 AM Age: 23 years old Clinical indication: Cough and dyspnea; Additional info: Dyspnea/cough TECHNIQUE: Imaging protocol: Radiologic exam of the chest. Views: 1 view. COMPARISON: CR (CHEST, ) 09/19/2023 2:01 PM FINDINGS: Lungs: Unremarkable. No consolidation. Pleural spaces: Unremarkable. No pleural effusion. No pneumothorax. Heart/Mediastinum: Unremarkable. No cardiomegaly. Bones/joints: No suspicious osseous findings. XR/XR chest 1V portable [id number] IMPRESSION: No acute findings.
--- NOTE | 2023-09-21 07:47 | W.ED.CHESTPA ---
HPI - Chest Pain General: Chief Complaint: Chest Pain Stated Complaint: chest pain Time Seen by Provider: 09/21/23 07:46 Source: patient Mode of arrival: ambulatory History of Present Illness: 23-year-old female presents emergency room complaining of chest discomfort and will be worse when she takes a deep breath or moves. She was seen a few days ago started on prednisone continues to have symptoms she is concerned because she does vape and was recently started on oral contraceptives. She has not had any severe shortness of breath hemoptysis or productive cough or fever. MD complaint: chest pain Onset (ago): day(s) Timing of current episode: episodic Onset: during rest Pain location: substernal Quality: sharp Relieving factors: nothing Exacerbating factors: nothing Associated symptoms: Deny abdominal pain, diaphoresis, dyspnea, fever(s), leg edema, nausea, palpitations, sense of impending doom, syncope or vomiting Treatment prior to arrival: other (Steroids) Risk Factors: Coronary artery disease risk factors: none Related Data: On Oral Contraceptives: Yes Review of Systems Const: Denies: fever(s), chills or diaphoresis Card: Denies: chest pain, palpitations or syncope Resp: Denies: dyspnea GI: Denies: abdominal pain, nausea or vomiting : Denies: dysuria, urinary frequency or urinary urgency Musc: Denies: neck pain or back pain Skin/Breast: Denies: rash PFSH ED PFSH: Medical History Acne Situational anxiety Surgical History H/O section Family History Mother Smoker Hypertension Denies family history of Colon cancer Ovarian cancer Diabetes Heart disease Hyperlipidemia Breast cancer Uterine cancer Thyroid disease Stroke Social History Smoking and tobacco/nicotine status: current every day tobacco/nicotine user (vape) Second hand smoke exposure: No Alcohol intake: current Alcohol intake frequency: holidays/special occasions only Substance/Drug Use: never Adopted: No Caregiver/support person: No Lives independently: Yes Household members: family Housing: House Marital status: Single Number of children: 1 Highest education level completed: High School Graduate service: No Current occupational status: employed Female Reproductive History: Para: 1 Spontaneous abortions: Yes Physical Exam Const: COMMON NORMALS: no acute distress GENERAL APPEARANCE: cooperative and comfortable ORIENTATION/CONSCIOUSNESS: Yes awake, Yes oriented to person, Yes oriented to place and Yes oriented to time HENMT: COMMON NORMALS: normocephalic, atraumatic and hearing grossly normal bilaterally HEAD & SCALP: normocephalic and atraumatic Resp: COMMON NORMALS: normal respiratory effort, No retractions, No use of accessory muscles and clear to auscultation bilaterally AUSCULTATION: clear to auscultation bilaterally Cardio: COMMON NORMALS: regular rate, regular rhythm and No murmurs present (Cardio) RATE: regular rate RHYTHM: regular rhythm GI: COMMON NORMALS: Soft to palpation and No hepatosplenomegaly present AUSCULTATION: Yes normoactive bowel sounds PALPATION: Yes Soft to palpation, No Tenderness to palpation present (GI), No Guarding due to palpation present (GI) and Yes No hepatosplenomegaly present Extremity: COMMON NORMALS: normal to inspection, capillary refill normal, no clubbing, cyanosis or edema, no calf tenderness and no pedal edema Neuro: SENSORIUM/ORIENTATION: Yes oriented to person, Yes oriented to place and Yes oriented to time Skin: COMMON NORMALS: no rashes or lesions noted GENERAL SKIN EXAM: no rashes or lesions noted Course Vital Signs: Vital signs: Vital Signs Temperature 97.9 F 09/21/23 07:49 Pulse Rate 83 09/21/23 09:13 Respiratory Rate 18 09/21/23 09:13 Blood Pressure 112/72 09/21/23 09:13 Pulse Oximetry 99 09/21/23 09:13 Oxygen Delivery Me thod Room Air 09/21/23 08:33 MDM - Chest Pain Medical Decision Making Labs and imaging reviewed patient has an elevated white count due to the prednisone. Chest x-ray negative D-dimer undetectable. EKG normal sinus rhythm is symptoms not suggestive of acute coronary syndrome no evidence of PE pneumonia pneumothorax or aortic dissection. It is pleuritic in nature continue prednisone and other anti-inflammatories as needed supportive cares and follow-up with primary care if not improving or if symptoms change can return to the emergency room Medical Records I reviewed the patient's medical records. Lab Data I reviewed the patient's lab results. 09/21/23 08:00 09/21/23 08:00 Radiology Impressions Chest X-Ray 09/21/23 07:46 IMPRESSION: No acute findings. Laboratory Results WBC 13.24 10^3/uL (3.29-11.43) H 09/21/23 08:00 RBC 4.77 10^6/uL (3.85-5.65) 09/21/23 08:00 Hgb 15.10 g/dL (11.27-16.99) 09/21/23 08:00 Hct 42.6 % (36-47) 09/21/23 08:00 MCV 89.3 fl (85-98) 09/21/23 08:00 MCH 31.7 pg (27-33) 09/21/23 08:00 MCHC 35.4 g/dL (30-55) 09/21/23 08:00 RDW 11.8 % (12.1-15.1) L 09/21/23 08:00 Plt Count 325 10^3/cmm (157-399) 09/21/23 08:00 MPV 9.5 fL (7.4-10.4) 09/21/23 08:00 Neut % (Auto) 75.6 % 09/21/23 08:00 Lymph % (Auto) 16.2 % 09/21/23 08:00 [place] % (Auto) 7.3 % 09/21/23 08:00 Eos % (Auto) 0.2 % 09/21/23 08:00 Baso % (Auto) 0.2 % 09/21/23 08:00 Neut # (Auto) 10.04 10^3/uL (1.8-7.7) H 09/21/23 08:00 Lymph # (Auto) 2.1 10^3/uL (0.8-4.8) 09/21/23 08:00 [place] # (Auto) 1.0 10^3/uL (0.2-0.9) H 09/21/23 08:00 Eos # (Auto) 0.0 10^3/uL (0.0-0.8) 09/21/23 08:00 Baso # (Auto) 0.0 10^3/uL (0.0-0.1) 09/21/23 08:00 Nucleated RBC % (auto) 0 % 09/21/23 08:00 Nucleated RBCs # 0.0 /100WBC 09/21/23 08:00 D-Dimer <= 0.27 ug/mLFEU (0-0.59) 09/21/23 08:00 Sodium 138 mmol/L (136-145) 09/21/23 08:00 Potassium 3.6 mmol/L (3.5-5.1) 09/21/23 08:00 Chloride 103 mmol/L (98-107) 09/21/23 08:00 Carbon Dioxide 23 mmol/L (22-29) 09/21/23 08:00 Anion Gap 15.6 (5-19) 09/21/23 08:00 BUN 14 mg/dL (6-20) 09/21/23 08:00 Creatinine 0.7 mg/dL (0.5-0.9) 09/21/23 08:00 GFR Calculation 103.7 mL/min (90-130) 09/21/23 08:00 Glucose 102 mg/dL (65-115) 09/21/23 08:00 Calculated Osmolality 287 mOsm/kg (285-295) 09/21/23 08:00 Calcium 9.7 mg/dL (8.5-10.5) 09/21/23 08:00 Total Bilirubin 0.4 mg/dL (0.15-1.2) 09/21/23 08:00 AST 33 U/L (0-32) H 09/21/23 08:00 ALT 84 U/L (0-33) H 09/21/23 08:00 Alkaline Phosphatase 68 U/L (35-105) 09/21/23 08:00 Total Protein 8.3 g/dL (6.6-8.7) 09/21/23 08:00 Albumin 4.6 g/dL (3.5-5.2) 09/21/23 08:00 Globulin 3.7 g/dL (1.3-4.6) 09/21/23 08:00 All radiology interpretation(s) finalized by discharge Discharge Plan Discharge Patient Disposition: Home Clinical Impression: Atypical chest pain Prescriptions: No Action clindamycin phosphate [Cleocin T] 1 % lotion 1 applic topical DAILY Qty: 60 0RF spironolactone 50 mg tablet 50 mg PO BID Qty: 60 5RF drospirenone-ethinyl estradiol [YEHUDA (28)] 3-0.02 mg tablet 1 tab PO QPM dexamethasone 6 mg tablet 6 mg PO DAILY 5 Days Qty: 5 0RF Rx Instructions: for 5 days (rx filled 09/19/23) Tylenol Ex Str Rapid Release 500 mg Tablet 500 mg PO Q6H PRN (Reason: Pain) ibuprofen 200 mg Tablet 200 mg PO Q6H PRN (Reason: Pain) Discharge Orders: Discharge ED (Routine); Ordered 09/21/23 Ordered By: Moose Regalado Referrals: Leia Gustafson, DISTRIBUTOR SALES MANAGER-C [Primary Care Provider] - Discharge Diet: Usual diet Discharge Activity: Increase activity as tolerated Patient Instructions: Opioid Safety, Pain Management Activity Restrictions/Additional Instructions: Thank you for choosing [facility] for your healthcare needs today. Please realize this is an emergency room and that we are providing you with a medical screening exam and this may not be complete and all inclusive of all the testing and or work up that you may need to determine your ailment or severity of your illness. It is very important that you follow up as instructed or that you return to the Emergency Department should you have concerns or if your condition changes or worsens in any way. You are seen today for chest discomfort. Chest x-ray was negative D-dimer was undetectable your vital signs are stable there is no sign of pneumonia no suggestion of PE or acute coronary syndrome or pneumothorax. Supportive cares continue prednisone and anti-inflammatories follow-up as needed Coding Level of Care Code ED Treatment Plant Operator for Henok Snowden
[2023-09-21 07:49] VITALS: BP 149/102; PULSE 108; RESP 20; TEMP 36.6; O2SAT 100
--- NOTE | 2023-09-21 07:57 | PC.PHAR ---
pt states she takes care of her own medications-pt states her spironolactone was increased to 50mg bid written on 09/14/23 ext shows last filled 50mg daily filled 09/13/23-notes are made in the pharmacy comments
[2023-09-21 08:08] LABS: Basophils % 0.2 %; Eosinophils % 0.2 %; Hematocrit 42.6 % (36-47); Lymphocytes # 2.1 10^3/uL (0.8-4.8); Lymphocytes % 16.2 %; Mean Corpuscular HGB Conc 35.4 g/dL (30-55); Mean Corpuscular Hemoglobin 31.7 pg (27-33); Mean Corpuscular Volume 89.3 fl (85-98); Mean Platelet Volume 9.5 fL (7.4-10.4); Monocytes % 7.3 %; Neutrophils # 10.04 10^3/uL (1.8-7.7); Neutrophils % 75.6 %; Nucleated Red Blood Cells % 0 %; Platelet Count 325 10^3/cmm (157-399); Red Blood Count 4.77 10^6/uL (3.85-5.65); Red Cell Distribution Width 11.8 % (12.1-15.1); White Blood Count 13.24 10^3/uL (3.29-11.43)
[2023-09-21 08:25] LABS: Alanine Aminotransferase 84 U/L (0-33); Albumin Level 4.6 g/dL (3.5-5.2); Alkaline Phosphatase 68 U/L (35-105); Anion Gap 15.6 (5-19); Aspartate Amino Transferase 33 U/L (0-32); Blood Urea Nitrogen 14 mg/dL (6-20); Calcium 9.7 mg/dL (8.5-10.5); Carbon Dioxide 23 mmol/L (22-29); Chloride 103 mmol/L (98-107); Creatinine Clr Calc Pharmacy 120.6108; Globulin 3.7 g/dL (1.3-4.6); Glomerular Filtration Rate 103.7 mL/min (90-130); Glucose 102 mg/dL (65-115); Osmolality Calculated 287 mOsm/kg (285-295); Potassium 3.6 mmol/L (3.5-5.1); Sodium 138 mmol/L (136-145); Total Bilirubin 0.4 mg/dL (0.15-1.2); Total Protein 8.3 g/dL (6.6-8.7)
[2023-09-21 08:33] VITALS: BP 110/69; PULSE 81; O2SAT 97
[2023-09-21 08:33] LABS: D Dimer <= 0.27 ug/mLFEU (0-0.59)
[2023-09-21 09:13] VITALS: BP 112/72; PULSE 83; RESP 18; O2SAT 99
== END 2023-09-21 09:14 | disposition home or self-care (01) ==
PROVIDERS: Emergency Provider Family Medicine; PCP Nurse Practitioner
DX: R07.89 Other chest pain (principal); F17.290 Nicotine dependence, other tobacco product, uncomplicated
CPT/HCPCS: 36415; 71045; 80053; 85025; 85378; 93005; 99285

== ENCOUNTER 2024-03-05 16:35 | Emergency (ER) | payer BC, MEDICAID, SELFPAY ==
--- NOTE | 2024-03-05 16:36 | ECG_ITS ---
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 Measurements Intervals [place] Rate: 92 P: 40 TN: 117 QRS: 25 QRSD: 78 T: -1 QT: 348 QTc: 432 Interpretive Statements SINUS RHYTHM WITH SHORT [place] INTERVAL MINIMAL ST DEPRESSION [0.025+ mV ST DEPRESSION] Compared to ECG 09/21/2023 07:46:52 No significant changes Electronically Signed On 03-05-2024 22:45:07 CDT by Ryan Doyle M.D. [id number] f
[2024-03-05 16:44] VITALS: BP 142/81; PULSE 94; RESP 18; TEMP 36.7; O2SAT 98; BMI 27.9
--- NOTE | 2024-03-05 16:47 | XRR_ITS ---
PROCEDURE INFORMATION: Exam: XR Chest Exam date and time: 03/05/2024 5:13 PM Age: 23 years old Clinical indication: Chest pressure; Patient HX: PT arrived via pov with the C/O chest pain that has been ongoing for several days. PT has not taken anything for pain today. TECHNIQUE: Imaging protocol: Radiologic exam of the chest. Views: 1 view. COMPARISON: CR XR chest 1V portable [id number] 09/21/2023 8:01 AM FINDINGS: Lungs: Unremarkable. No consolidation. Pleural spaces: Unremarkable. No pleural effusion. No pneumothorax. Heart/Mediastinum: Unremarkable. No cardiomegaly. Bones/joints: Unremarkable. XR/XR chest 1V portable [id number] IMPRESSION: No acute findings.
[2024-03-05 17:01] VITALS: BP 144/83; PULSE 91; O2SAT 95
--- NOTE | 2024-03-05 17:17 | W.ED.CHESTPA ---
HPI - Chest Pain General: Chief Complaint: Chest Pain Stated Complaint: chest pain Time Seen by Provider: 03/05/24 16:57 History of Present Illness: Healthy 23-year-old female who presents emergency room with intermittent left pleuritic chest pain. Says the pain is in her epigastrium and is now kind of moving to the left. Hurts when she breathes. No cough. No fevers. Her son did have a viral illness recently that he has recovered from. No lower extremity swelling. No shortness of breath. No abdominal pain. No nausea or vomiting. Related Data Home Medications Medication Instructions Recorded Confirmed acetaminophen 500 mg tablet 500 mg PO Q6H PRN Pain 09/21/23 01/19/24 ibuprofen 200 mg tablet 200 mg PO Q6H PRN Pain 09/21/23 01/19/24 Previous Rx's Medication Instructions Recorded clindamycin phosphate 1 % lotion 1 applic topical DAILY #60 mL 09/13/23 (Cleocin T) azithromycin 250 mg tablet See Rx Instructions PO .COMPLEX #6 03/05/24 (Zithromax Z-Juvenal) tabs dexamethasone 6 mg tablet 6 mg PO DAILY 5 days #5 tabs 03/05/24 Allergies Allergy/AdvReac Type Severity Reaction Status Date / Time amoxicillin Allergy ALGY-Rash Verified 03/05/24 16:46 PFSH ED PFSH: Medical History Allergic rhinitis due to allergen Acne Situational anxiety Surgical History H/O section Family History Mother Smoker Hypertension Denies family history of Colon cancer Ovarian cancer Diabetes Heart disease Hyperlipidemia Breast cancer Uterine cancer Thyroid disease Stroke Social History Smoking and tobacco/nicotine status: current every day tobacco/nicotine user (vape) Second hand smoke exposure: No Alcohol intake: current Alcohol intake frequency: holidays/special occasions only Substance/Drug Use: never Adopted: No Caregiver/support person: No Lives independently: Yes Household members: family Housing: House Marital status: Single Number of children: 1 Highest education level completed: High School Graduate service: No Current occupational status: employed Female Reproductive History: Date of last menstrual period: 02/15/24 Para: 1 Spontaneous abortions: Yes Physical Exam Narrative: EXAM NARRATIVE: General: Alert, no acute distress. Skin: Warm, dry. Head: Normocephalic, atraumatic. Neck: Supple, trachea midline. Eye: Extraocular movements are intact. Ears, nose, mouth and throat: mucosa moist. Cardiovascular: Regular, Normal peripheral perfusion. Respiratory: Lungs are clear to auscultation, respirations are non-labored, breath sounds are equal, Symmetrical chest wall expansion. Gastrointestinal: Soft, Nontender, Non distended Musculoskeletal: Normal ROM, no deformity. Neurological: Alert and oriented, No focal neurological deficit observed. Psychiatric: Cooperative, appropriate mood & affect. Course Vital Signs: Vital signs: Vital Signs Temperature 98.0 F 03/05/24 16:44 Pulse Rate 94 03/05/24 16:44 Respiratory Rate 18 03/05/24 16:44 Blood Pressure 142/81 03/05/24 16:44 Pulse Oximetry 98 03/05/24 16:44 Oxygen Delivery Me thod Room Air 03/05/24 16:44 MDM - Chest Pain Medical Decision Making Chest x-ray: No acute process. No infiltrate. No pneumothorax. This was reviewed and interpreted by myself the ER physician. Lab work is unremarkable. Renal function is normal. Troponin is negative. Assessment and plan: Viral upper respiratory infection Pleuritic chest pain - Discharged home - Discussed plan with patient. Answered any questions. - Evaluation and treatment of this problem were appropriate in the emergency setting. Lab Data 03/05/24 17:27 Laboratory Results Sodium 134 mmol/L (136-145) L 03/05/24 17:27 Potassium 3.9 mmol/L (3.5-5.1) 03/05/24 17:27 Chloride 104 mmol/L (98-107) 03/05/24 17:27 Carbon Dioxide 22 mmol/L (22-29) 03/05/24 17:27 Anion Gap 11.9 (5-19) 03/05/24 17:27 BUN 11 mg/dL (6-20) 03/05/24 17:27 Creatinine 0.5 mg/dL (0.5-0.9) 03/05/24 17:27 GFR Calculation 152.9 mL/min (90-130) H 03/05/24 17:27 Glucose 90 mg/dL (65-115) 03/05/24 17:27 Calculated Osmolality 277 mOsm/kg (285-295) L 03/05/24 17:27 Calcium 9.0 mg/dL (8.5-10.5) 03/05/24 17:27 Total Bilirubin 0.3 mg/dL (0.15-1.2) 03/05/24 17:27 AST 16 U/L (0-32) 03/05/24 17:27 ALT 28 U/L (0-33) 03/05/24 17:27 Alkaline Phosphatase 76 U/L (35-105) 03/05/24 17:27 Troponin T Baseline < 6 ng/L (0-10) 03/05/24 17:27 C-Reactive Protein 3.0 mg/L (0.0-4.9) 03/05/24 17:27 Total Protein 6.9 g/dL (6.6-8.7) 03/05/24 17:27 Albumin 4.3 g/dL (3.5-5.2) 03/05/24 17:27 Globulin 2.6 g/dL (1.3-4.6) 03/05/24 17:27 XR interpretation done by ED provider, pending radiology final review Discharge Plan Discharge Patient Disposition: Home Clinical Impression: Upper respiratory infection, Pleuritic chest pain Condition: Stable Prescriptions: New azithromycin [Zithromax Z-Juvenal] 250 mg tablet See Rx Instructions .ROUTE .COMPLEX Qty: 6 0RF Rx Instructions: For 250 mg dose pack: take 500 mg today (day 1), then 250 mg for 4 days (days 2-5) dexamethasone 6 mg tablet 6 mg PO DAILY 5 Days Qty: 5 0RF No Action clindamycin phosphate [Cleocin T] 1 % lotion 1 applic topical DAILY Qty: 60 0RF Tylenol Ex Str Rapid Release 500 mg Tablet 500 mg PO Q6H PRN (Reason: Pain) ibuprofen 200 mg Tablet 200 mg PO Q6H PRN (Reason: Pain) Discharge Orders: Discharge ED (Routine); Ordered 03/05/24 Ordered By: Deanne Cameron Referrals: Leia Gustafson, PHOTOGRAPHER SCIENTIFIC-C [Primary Care Provider] - Discharge Diet: Usual diet Discharge Activity: Increase activity as tolerated Patient Instructions: Pleurisy (ED) Activity Restrictions/Additional Instructions: Thank you for choosing [facility] for your healthcare needs today. Please realize this is an emergency room and that we are providing you with a medical screening exam and this may not be complete and all inclusive of all the testing and or work up that you may need to determine your ailment or severity of your illness. You have been screened and evaluated and felt safe for discharge. Health conditions do change or evolve sometimes and as such it is important that you follow up with your Primary Doctor to be re checked, 3-5 days is a general good time frame for follow up. You are always welcome to return to the ED for re assessment if your symptoms are worsening or you have new concerns Coding Level of Care Code ED Contract Post Office Clerk for Henok Snowden
[2024-03-05 17:46] VITALS: BP 124/77; PULSE 87; O2SAT 100
[2024-03-05 18:05] LABS: Alanine Aminotransferase 28 U/L (0-33); Albumin Level 4.3 g/dL (3.5-5.2); Alkaline Phosphatase 76 U/L (35-105); Anion Gap 11.9 (5-19); Aspartate Amino Transferase 16 U/L (0-32); Blood Urea Nitrogen 11 mg/dL (6-20); Carbon Dioxide 22 mmol/L (22-29); Chloride 104 mmol/L (98-107); Creatinine Clr Calc Pharmacy 178.6829; Globulin 2.6 g/dL (1.3-4.6); Glomerular Filtration Rate 152.9 mL/min (90-130); Glucose 90 mg/dL (65-115); Osmolality Calculated 277 mOsm/kg (285-295); Potassium 3.9 mmol/L (3.5-5.1); Sodium 134 mmol/L (136-145); Total Bilirubin 0.3 mg/dL (0.15-1.2); Total Protein 6.9 g/dL (6.6-8.7); Troponin(5th) Baseline < 6 ng/L (0-10)
--- NOTE | 2024-03-05 18:21 | ECG_ITS ---
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 Measurements Intervals [place] Rate: 71 P: 38 [place]: 134 QRS: 44 QRSD: 70 T: 17 QT: 377 QTc: 410 Interpretive Statements SINUS RHYTHM Compared to ECG 03/05/2024 16:36:24 Short [place] interval no longer present ST (T wave) deviation no longer present Electronically Signed On 03-05-2024 23:05:10 CDT by Ryan Doyle M.D. [id number]
[2024-03-05 18:31] VITALS: BP 128/77; PULSE 95; O2SAT 96
== END 2024-03-05 18:35 | disposition home or self-care (01) ==
PROVIDERS: Emergency Medicine; Emergency Provider Emergency Medicine; PCP Nurse Practitioner
DX: R09.1 Pleurisy (principal); J06.9 Acute upper respiratory infection, unspecified; F17.290 Nicotine dependence, other tobacco product, uncomplicated
CPT/HCPCS: 36415; 71045; 80048; 80053; 84484; 86140; 93005; 99285

== ENCOUNTER → 2024-03-30 08:43 | Outpatient (BNVA) | payer BC, MEDICAID, SELFPAY | PROVIDERS: PCP Nurse Practitioner | DX: R05.9 Cough, unspecified (principal) | CPT/HCPCS: 87400; 87426 ==

== ENCOUNTER → 2024-04-30 10:49 | Outpatient (BNVA) | payer BC, MEDICAID, SELFPAY | PROVIDERS: PCP Nurse Practitioner; Visit Provider Nurse Practitioner | DX: J06.9 Acute upper respiratory infection, unspecified (principal) | CPT/HCPCS: 87426 ==

== ENCOUNTER → 2024-05-16 13:11 | Outpatient (BNVA) | payer BC, MEDICAID, SELFPAY | PROVIDERS: PCP Nurse Practitioner; Visit Provider Nurse Practitioner Women's Health | DX: R30.0 Dysuria (principal); N91.2 Amenorrhea, unspecified | CPT/HCPCS: 81000; 81025 ==

== ENCOUNTER → 2024-06-04 12:00 | Outpatient (BNVA) | payer BC, MEDICAID, SELFPAY | PROVIDERS: PCP Nurse Practitioner | DX: J02.9 Acute pharyngitis, unspecified (principal); Z20.822 Contact with and (suspected) exposure to COVID-19 | CPT/HCPCS: 87071; 87426; 87880 ==

== ENCOUNTER 2024-08-23 11:37 | Emergency (ER) | payer BC, MEDICAID, SELFPAY ==
--- NOTE | 2024-08-23 11:41 | XR_ITS ---
WS: [id number] Exam: XR chest 1V portable [id number] Date/Time of Exam: 08/23/2024 11:50 AM Reason For Exam: cp Comparison 03/05/2024. Lungs are clear and fully expanded. Normal cardiomediastinal silhouette and regional bony elements. No pleural effusion. XR/XR chest 1V portable [id number] IMPRESSION: 1. Normal chest.
[2024-08-23 11:42] VITALS: BP 142/85; PULSE 99; RESP 16; TEMP 36.7; O2SAT 100; BMI 28.8
--- NOTE | 2024-08-23 11:47 | ECG_ITS ---
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 Measurements Intervals [place] Rate: 92 P: 42 AR: 122 QRS: 44 QRSD: 74 T: 37 QT: 345 QTc: 427 Interpretive Statements SINUS RHYTHM Compared to ECG 03/05/2024 18:21:29 No significant changes Electronically Signed On 08-23-2024 12:25:52 CDT by Ryan Doyle M.D. [id number] [id number]
--- NOTE | 2024-08-23 12:30 | W.ED.CHESTPA ---
HPI - Chest Pain General: Chief Complaint: Chest Pain Stated Complaint: chest pain Time Seen by Provider: 08/23/24 11:54 Source: patient Mode of arrival: ambulatory Limitations: no limitations History of Present Illness: 24-year-old female who states she has had cough congestion over the last few weeks. She was seen in urgent care today diagnosed with bronchitis started on steroids along with an antibiotic. States today she been having sharp pains in the center of her chest along the left side of her chest states it is worse with palpation and deep breaths she denies any shortness of breath denies any fever Associated symptoms: Deny abdominal pain, dyspnea, fever(s), nausea or vomiting Related Data Home Medications ?Medication ?Instructions ?Recorded ?Confirmed acetaminophen 500 mg tablet 500 mg PO Q6H PRN Pain 09/21/23 08/22/24 ibuprofen 200 mg tablet 200 mg PO Q6H PRN Pain 09/21/23 08/22/24 omeprazole 20 mg capsule,delayed 20 mg PO DAILY 06/04/24 08/22/24 release spironolactone 50 mg tablet 100 mg PO DAILY 06/04/24 08/22/24 Previous Rx's ?Medication ?Instructions ?Recorded clindamycin phosphate 1 % lotion 1 applic topical DAILY #60 mL 09/13/23 (Cleocin T) clindamycin HCl 150 mg capsule 150 mg PO TID #30 caps 08/05/24 (Cleocin HCl) albuterol sulfate 90 mcg/actuation 2 puff inhalation Q6H PRN 08/22/24 aerosol inhaler shortness of breath or wheezing #8.5 grams zbjkodwtavyvvqw-nacgholmfjdwcby-UB 5 ml PO Q6H PRN cold symptoms #118 08/22/24 2 mg-30 mg-10 mg/5 mL oral syrup mL (Bromfed DM) clarithromycin 500 mg tablet 500 mg PO BID 10 days #20 tabs 08/22/24 prednisone 10 mg tablet 30 mg (3 x 10 mg) PO DAILY 5 days 08/22/24 #15 tabs naproxen 500 mg tablet (Naprosyn) 500 mg PO BID PRN pain #20 tabs 08/23/24 Allergies Allergy/AdvReac Type Severity Reaction Status Date / Time amoxicillin Allergy ALGY-Rash Verified 08/22/24 08:35 Review of Systems Const: Denies: fever(s), chills, body aches or change in appetite ENMT: Denies: throat pain or dental pain Card: Reports: chest pain Resp: Denies: dyspnea GI: Denies: abdominal pain, nausea, vomiting or diarrhea Musc: Denies: neck pain or back pain Skin/Breast: Denies: rash Neuro: Denies: headache(s) PFSH ED PFSH: Medical History Viral syndrome Allergic rhinitis due to allergen Acne Situational anxiety Surgical History H/O section Family History Mother Smoker Hypertension Denies family history of Colon cancer Ovarian cancer Diabetes Heart disease Hyperlipidemia Breast cancer Uterine cancer Thyroid disease Stroke Social History Smoking and tobacco/nicotine status: current every day tobacco/nicotine user Second hand smoke exposure: No Alcohol intake: current Alcohol intake frequency: holidays/special occasions only Substance/Drug Use: never Adopted: No Caregiver/support person: No Lives independently: Yes Household members: family Housing: House Marital status: Single Number of children: 1 Highest education level completed: High School Graduate service: No Current occupational status: employed Female Reproductive History: Date of last menstrual period: 08/16/24 Para: 1 Spontaneous abortions: Yes Physical Exam Const: COMMON NORMALS: no acute distress, patient oriented x3 and healthy appearing HENMT: COMMON NORMALS: normocephalic and atraumatic HEAD & SCALP: normocephalic and atraumatic Eye: COMMON NORMALS: Equal, round and reactive pupils present and EOMs intact bilaterally PUPIL: Yes Equal, round and reactive pupils present Neck/C-Spine: COMMON NORMALS: full ROM and supple Chest: COMMONS NORMALS: normal inspection of the chest OTHER: point tender in center of chest Resp: COMMON NORMALS: normal respiratory effort, No retractions, No use of accessory muscles and clear to auscultation bilaterally AUSCULTATION: clear to auscultation bilaterally Cardio: COMMON NORMALS: regular rate, regular rhythm and No murmurs present (Cardio) RATE: regular rate RHYTHM: regular rhythm GI: COMMON NORMALS: Normal to inspection, nondistended, normoactive bowel sounds present Extremity: COMMON NORMALS: normal to inspection and full ROM Neuro: COMMON NORMALS: patient oriented x3, moves all extremities and no focal motor deficits Psych: COMMON NORMALS: mental status grossly normal, Normal thought process present and cooperative THOUGHT PROCESS: Normal thought process present Skin: COMMON NORMALS: no rashes or lesions noted and no wounds GENERAL SKIN EXAM: no rashes or lesions noted Course Vital Signs: Vital signs: Vital Signs Temperature 98.1 F 08/23/24 11:42 Pulse Rate 99 08/23/24 11:42 Respiratory Rate 16 08/23/24 11:42 Blood Pressure 142/85 08/23/24 11:42 Pulse Oximetry 100 08/23/24 11:42 Oxygen Delivery Me thod Room Air 08/23/24 11:42 MDM - Chest Pain Medical Decision Making Patient presents here with chest pains atypical in nature is likely pleuritic EKG and x-ray are normal. Patient stable for discharge follow-up PCP return if worsening. Will place her on Naprosyn Medical Records I reviewed the patient's medical records. Lab Data I reviewed the patient's lab results. Radiology Impressions Chest X-Ray 08/23/24 11:41 IMPRESSION: 1. Normal chest. All radiology interpretation(s) finalized by discharge Discharge Plan Discharge Patient Disposition: Home Clinical Impression: Chest wall pain, Pleurisy Condition: Stable Prescriptions: New naproxen [Naprosyn] 500 mg tablet 500 mg PO BID PRN (Reason: pain) Qty: 20 0RF No Action spironolactone 50 mg tablet 100 mg PO DAILY omeprazole 20 mg capsule,delayed release(DR/EC) 20 mg PO DAILY clindamycin phosphate [Cleocin T] 1 % lotion 1 applic topical DAILY Qty: 60 0RF clindamycin HCl [Cleocin HCl] 150 mg capsule 150 mg PO TID Qty: 30 0RF albuterol sulfate 90 mcg/actuation HFA aerosol inhaler 2 puff inhalation Q6H PRN (Reason: shortness of breath or wheezing) Qty: 8.5 0RF clarithromycin 500 mg tablet 500 mg PO BID 10 Days Qty: 20 0RF prednisone 10 mg tablet 30 mg PO DAILY 5 Days Qty: 15 0RF fjjgtdfdlrtntik-xogzdovze-IL [Bromfed DM] 2-30-10 mg/5 mL syrup 5 ml PO Q6H PRN (Reason: cold symptoms) Qty: 118 0RF Tylenol Ex Str Rapid Release 500 mg Tablet 500 mg PO Q6H PRN (Reason: Pain) ibuprofen 200 mg Tablet 200 mg PO Q6H PRN (Reason: Pain) Discharge Orders: Discharge ED (Routine); Ordered 08/23/24 Ordered By: Zuhair Gorman Referrals: Leia Gustafson, TRANSMITTER CHIEF-C [Primary Care Provider] - Discharge Diet: Advance as tolerated Discharge Activity: Resume usual activity Patient Instructions: Chest Wall Pain (ED) Print Language: Slovak Coding Level of Care Code ED Welfare Eligibility Worker for Henok Snowden
[2024-08-23 13:10] VITALS: BP 122/82; PULSE 93; O2SAT 99
== END 2024-08-23 13:11 | disposition home or self-care (01) ==
PROVIDERS: Emergency Provider Emergency Medicine; PCP Nurse Practitioner
DX: R07.89 Other chest pain (principal); R09.1 Pleurisy; Z72.0 Tobacco use
CPT/HCPCS: 71045; 93005; 99284

== ENCOUNTER → 2024-11-06 10:50 | Outpatient (BNVA) | payer BC, MEDICAID, SELFPAY | DX: J02.9 Acute pharyngitis, unspecified (principal); B96.89 Other specified bacterial agents as the cause of diseases classified elsewhere; H66.003 Acute suppurative otitis media without spontaneous rupture of ear drum, bilateral | CPT/HCPCS: 87071; 87880 ==

== ENCOUNTER 2024-12-14 10:42 | Outpatient (CLI) | payer BC, MEDICAID, SELFPAY ==
--- NOTE | 2024-12-14 10:54 | US_ITS ---
WS: [id number] ULTRASOUND BREAST RIGHT TECHNIQUE: Ultrasound right breast focused area of concern. CLINICAL INFORMATION: MASS OF R BREAST COMPARISON: None. FINDINGS: Ultrasound RIGHT breast at the 11 to 12 o'clock position 1 cm from the nipple in the area of palpable concern.Normal underlying subcutaneous soft tissue. No cystic or solid lesions in the area of concern. No suspicious abnormalities in this area. Ultrasound RIGHT axilla in the area of pain is normal in appearance. No suspicious findings in this area. Recommend annual screening mammography age 40 US/US breast RT limited* [id number] IMPRESSION: BI-RADS 2 benign Recommend annual screening mammography age 40
== END 2024-12-14 10:43 | disposition home or self-care (01) ==
PROVIDERS: Visit Provider Nurse Practitioner Family
DX: N63.11 Unspecified lump in the right breast, upper outer quadrant (principal)
CPT/HCPCS: 76642

== ENCOUNTER → 2024-12-21 07:29 | Outpatient (BNVA) | payer BC, MEDICAID, SELFPAY | PROVIDERS: Visit Provider Nurse Practitioner | DX: R30.0 Dysuria (principal); R39.9 Unspecified symptoms and signs involving the genitourinary system | CPT/HCPCS: 81000 ==

== ENCOUNTER → 2025-01-01 09:44 | Outpatient (BNVA) | payer BC, MEDICAID, SELFPAY | DX: R39.9 Unspecified symptoms and signs involving the genitourinary system (principal); R31.0 Gross hematuria | CPT/HCPCS: 81000 ==

== ENCOUNTER → 2025-01-05 12:17 | Outpatient (BNVA) | payer BC, MEDICAID, SELFPAY | PROVIDERS: Visit Provider Emergency Medicine | DX: J02.9 Acute pharyngitis, unspecified (principal) | CPT/HCPCS: 87071; 87400; 87426; 87880 ==

== ENCOUNTER → 2025-01-07 11:39 | Outpatient (BNVA) | payer BC, SELFPAY | PROVIDERS: Visit Provider Emergency Medicine | DX: J06.9 Acute upper respiratory infection, unspecified (principal) | CPT/HCPCS: 87426 ==

== ENCOUNTER 2025-01-08 09:43 | Emergency (ER) | payer BC, MEDICAID, SELFPAY ==
--- NOTE | 2025-01-08 09:45 | XRR_ITS ---
PROCEDURE INFORMATION: Exam: XR Chest Exam date and time: 01/08/2025 10:15 AM Age: 24 years old Clinical indication: Body aches, fever TECHNIQUE: Imaging protocol: Radiologic exam of the chest. Views: 1 view. COMPARISON: CR XR chest 1V portable [id number] 08/23/2024 11:53 AM FINDINGS: Lungs: Unremarkable. No consolidation. Pleural spaces: Unremarkable. No pleural effusion. No pneumothorax. Heart/Mediastinum: Unremarkable. No cardiomegaly. Bones/joints: Unremarkable. XR/XR chest 1V portable [id number] IMPRESSION: No acute findings.
[2025-01-08 10:04] VITALS: BP 125/83; PULSE 93; RESP 16; TEMP 36.8; O2SAT 99; BMI 29.2
--- NOTE | 2025-01-08 10:17 | ED_ITS ---
HPI - Weakness 2 General: Chief complaint: Weakness Stated complaint: body aches, weakness, fatigue, nausea Time Seen by Provider: 01/08/25 09:44 Source: patient Mode of arrival: ambulatory Limitations: no limitations History of Present Illness: 24-year-old female states that over the last 4 days she has been having low- grade fevers she also has had some chills and generalized bodyaches. She states that she is just been having muscle soreness she had a mild cough and mild dyspnea as well. She seen at urgent care had negative COVID flu states she has not felt improved denies any dysuria denies any vomiting or diarrhea Associated symptoms: Reports chills and fever(s); Denies chest pain, dysuria, headache(s), nausea or vomiting Related Data Home Medications ?Medication ?Instructions ?Recorded ?Confirmed doxycycline hyclate 100 mg capsule 100 mg PO DAILY 09/2201/07/25 Previous Rx's ?Medication ?Instructions ?Recorded clindamycin phosphate 1 % lotion 1 applic topical ASHLEY Y #60 mL 09/13/23 (Cleocin T) ibuprofen 800 mg tablet 800 mg PO Q8H PRN pain #30 t abs 11/06/24 cetirizine 10 mg tablet 10 mg PO DAILY #30 tabs 10/29 01/22 cetirizine 10 mg tablet (Zyrtec) 10 mg PO DAILY PRN al lergy 01/05/25 symptoms #30 tabs Allergies Allergy/AdvReac Type Severity Reaction Status Date / Time amoxicillin Allergy ALGY-Rash Verified 01/08/25 10:09 Review of Systems 2 Const: Reports: fever(s), chills and body aches; Denies: change in appetite Eyes: Denies: blurry vision or eye discomfort ENMT: Denies: throat pain or dental pain Card: Denies: chest pain Resp: Reports: dyspnea GI: Denies: abdominal pain, nausea, vomiting or diarrhea : Denies: dysuria Musc: Denies: neck pain or back pain Skin/Breast: Denies: rash Neuro: Denies: headache(s) PFSH ED 2 PFSH: Medical History Viral syndrome Allergic rhinitis due to allergen Acne Situational anxiety Surgical History H/O section Family History Mother Smoker Hypertension Denies family history of Colon cancer Ovarian cancer Diabetes Heart disease Hyperlipidemia Breast cancer Uterine cancer Thyroid disease Stroke Social History Smoking and tobacco/nicotine status: never used tobacco/nicotine Second hand smoke exposure: No Alcohol intake: current Alcohol intake frequency: holidays/special occasions only Substance/Drug Use: never Adopted: No Caregiver/support person: No Lives independently: Yes Household members: family Housing: House Marital status: Single Number of children: 1 Highest education level completed: High School Graduate service: No Current occupational status: employed Female Reproductive History: Date of last menstrual period: 01/02/25 Para: 1 Spontaneous abortions: Yes Physical Exam 2 Const: COMMON NORMALS: no acute distress, patient oriented x3 and healthy appearing HENMT: COMMON NORMALS: normocephalic and atraumatic HEAD & SCALP: n ormocephalic and atraumatic Eye: COMMON NORMALS: conjunctivae normal CONJUNCTIVA: Yes conjunctivae normal Neck/C-Spine: COMMON NORMALS: full ROM and supple Chest: COMMONS NORMALS: normal inspection of the chest Resp: COMMON NORMALS: normal respiratory effort, No retractions, No use of accessory muscles and clear to auscultation bilaterally AUSCULTATION: clear to auscultation bilaterally Cardio: COMMON NORMALS: regular rate, regular rhythm and No murmurs present (Cardio) RATE: regular rate RHYTHM: regular rhythm Extremity: COMMON NORMALS: normal to inspection and full ROM Neuro: COMMON NORMALS: patient oriented x3, moves all extremities and no focal motor deficits Psych: COMMON NORMALS: mental status grossly normal, Normal thought process present and cooperative THOUGHT PROCESS: Normal thought process present Skin: COMMON NORMALS: no rashes or lesions noted and no wounds GENERAL SKIN EXAM: no rashes or lesions noted Course 2 Vital Signs: Vital signs: Vital Signs Temperature 98.2 F 01/08/25 10:04 Pulse Rate 80 01/08/25 10:41 Respiratory Rate 16 01/08/25 10:04 Blood Pressure 123/78 01/08/25 10:41 Pulse Oximetry 99 01/08/25 10:41 Oxygen Delivery Me thod Room Air 01/08/25 10:41 MDM - Weakness Medical Decision Making Patient presents for generalized bodyaches likely a viral syndrome blood work here is normal no signs of infection patient stable for discharge follow-up with PCP return if worsening she understands agrees to plan. Medical Records I reviewed the patient's medical records. Lab Data I reviewed the patient's lab results. 01/08/25 10:08 01/08/25 10:08 Radiology Impressions Chest X-Ray 01/08/25 09:45 IMPRESSION: No acute findings. Laboratory Results WBC 4.58 10^3/uL (3.29-11.43) 01/08/25 10:08 RBC 4.59 10^6/uL (3.85-5.65) 01/08/25 10:08 Hgb 14.20 g/dL (11.27-16.99) 01/08/25 10:08 Hct 41.1 % (36-47) 01/08/25 10:08 MCV 89.5 fl (85-98) 01/08/25 10:08 MCH 30.9 pg (27-33) 01/08/25 10:08 MCHC 34.5 g/dL (30-55) 01/08/25 10:08 RDW 11.9 % (12.1-15.1) L 01/08/25 10:08 Plt Count 248 10^3/cmm (157-399) 01/08/25 10:08 MPV 9.4 fL (7.4-10.4) 01/08/25 10:08 Neut % (Auto) 65.5 % 01/08/25 10:08 Lymph % (Auto) 24.9 % 01/08/25 10:08 [place] % (Auto) 6.8 % 01/08/25 10:08 Eos % (Auto) 2.2 % 01/08/25 10:08 Baso % (Auto) 0.2 % 01/08/25 10:08 Neut # (Auto) 3.00 10^3/uL (1.8-7.7) 01/08/25 10:08 Lymph # (Auto) 1.1 10^3/uL (0.8-4.8) 01/08/25 10:08 [place] # (Auto) 0.3 10^3/uL (0.2-0.9) 01/08/25 10:08 Eos # (Auto) 0.1 10^3/uL (0.0-0.8) 01/08/25 10:08 Baso # (Auto) 0.0 10^3/uL (0.0-0.1) 01/08/25 10:08 Nucleated RBC % (auto) 0 % 01/08/25 10:08 Nucleated RBCs # 0.0 /100WBC 01/08/25 10:08 Sodium 136 mmol/L (136-145) 01/08/25 10:08 Potassium 4.5 mmol/L (3.5-5.1) 01/08/25 10:08 Chloride 102 mmol/L (98-107) 01/08/25 10:08 Carbon Dioxide 24 mmol/L (22-29) 01/08/25 10:08 Anion Gap 14.5 (5-19) 01/08/25 10:08 BUN 7 mg/dL (6-20) 01/08/25 10:08 Creatinine 0.6 mg/dL (0.5-0.9) 01/08/25 10:08 GFR Calculation 122.8 mL/min (90-130) 01/08/25 10:08 Glucose 139 mg/dL (65-115) H 01/08/25 10:08 Calculated Osmolality 282 mOsm/kg (285-295) L 01/08/25 10:08 Calcium 9.2 mg/dL (8.5-10.5) 01/08/25 10:08 Total Bilirubin 0.3 mg/dL (0.15-1.2) 01/08/25 10:08 AST 20 U/L (0-32) 01/08/25 10:08 ALT 24 U/L (0-33) 01/08/25 10:08 Alkaline Phosphatase 76 U/L (35-105) 01/08/25 10:08 Total Protein 7.1 g/dL (6.6-8.7) 01/08/25 10:08 Albumin 4.0 g/dL (3.5-5.2) 01/08/25 10:08 Globulin 3.1 g/dL (1.3-4.6) 01/08/25 10:08 TSH 1.30 uIU/mL (0.27-4.20) 01/08/25 10:08 HCG, Qual Negative (Negative) 01/08/25 10:08 Urine Color Yellow (Yellow) 01/08/25 10:25 Urine Appearance Clear (CLEAR) 01/08/25 10:25 Urine pH 5.0 (5-7) 01/08/25 10:25 Ur Specific [place] 1.020 (1.005-1.030) 01/08/25 10:25 Urine Protein Negative (Negative) 01/08/25 10:25 Urine Glucose (UA) Negative (Normal) 01/08/25 10:25 Urine Ketones Negative (Negative) 01/08/25 10:25 Urine Blood Negative (Negative) 01/08/25 10:25 Urine Nitrate Negative (Negative) 01/08/25 10:25 Urine Bilirubin Negative (Negative) 01/08/25 10:25 Urine Urobilinogen 0.2 mg/dL (Negative) 01/08/25 10:25 Ur Leukocyte Esterase Negative (Negative) 01/08/25 10:25 Urine RBC 0-2 /hpf (0-2) 01/08/25 10:25 Urine WBC 0-5 /hpf (0-5) 01/08/25 10:25 Ur Squamous Epith Cells 11-20 /hpf (0-5) H 01/08/25 10:25 Amorphous Sediment Not Reportable 01/08/25 10:25 Urine Bacteria 1+ /hpf (NONE) H 01/08/25 10:25 Hyaline Casts 1.21 /lpf 01/08/25 10:25 All radiology interpretation(s) finalized by discharge Discharge Plan Discharge Patient Disposition: Home Clinical Impression: Arthralgia Condition: Stable Prescriptions: No Action clindamycin phosphate [Cleocin T] 1 % lotion 1 applic topical DAILY Qty: 60 0RF ibuprofen 800 mg tablet 800 mg PO Q8H PRN (Reason: pain) Qty: 30 0RF cetirizine 10 mg tablet 10 mg PO DAILY Qty: 30 0RF doxycycline hyclate 100 mg capsule 100 mg PO DAILY cetirizine [Zyrtec] 10 mg tablet 10 mg PO DAILY PRN (Reason: allergy symptoms) Qty: 30 0RF Discharge Orders: Discharge ED (Routine); Ordered 01/08/25 Ordered By: Zuhair Gorman Referrals: Veronika Samson FNP [Primary Care Provider] - 4-7 days Discharge Diet: Advance as tolerated Discharge Activity: Resume usual activity Patient Instructions: Arthralgia (ED) Print Language: New Zealander Coding Level of Care Code ED Senior Php Developer for Henok Snowden
[2025-01-08 10:18] LABS: Hematocrit 41.1 % (36-47); Hemoglobin 14.20 g/dL (11.27-16.99); Mean Corpuscular HGB Conc 34.5 g/dL (30-55); Mean Corpuscular Hemoglobin 30.9 pg (27-33); Mean Corpuscular Volume 89.5 fl (85-98); Nucleated Red Blood Cells % 0 %; Platelet Count 248 10^3/cmm (157-399); Red Blood Count 4.59 10^6/uL (3.85-5.65); White Blood Count 4.58 10^3/uL (3.29-11.43)
[2025-01-08 10:41] VITALS: BP 123/78; PULSE 80; O2SAT 99
[2025-01-08 10:42] LABS: HCG, Serum Qual Negative (Negative)
[2025-01-08 10:43] LABS: Glucose Urine UA Negative (Normal); Nitrate Urine Negative (Negative); Specific Gravity, Urine 1.020 (1.005-1.030)
[2025-01-08 10:46] LABS: Alanine Aminotransferase 24 U/L (0-33); Albumin Level 4.0 g/dL (3.5-5.2); Alkaline Phosphatase 76 U/L (35-105); Anion Gap 14.5 (5-19); Aspartate Amino Transferase 20 U/L (0-32); Blood Urea Nitrogen 7 mg/dL (6-20); Calcium 9.2 mg/dL (8.5-10.5); Carbon Dioxide 24 mmol/L (22-29); Chloride 102 mmol/L (98-107); Creatinine Clr Calc Pharmacy 145.3081; Globulin 3.1 g/dL (1.3-4.6); Glucose 139 mg/dL (65-115); Osmolality Calculated 282 mOsm/kg (285-295); Potassium 4.5 mmol/L (3.5-5.1); Sodium 136 mmol/L (136-145); Total Protein 7.1 g/dL (6.6-8.7)
[2025-01-08 10:53] LABS: Add Urine Microscopic? YES
[2025-01-08 10:57] LABS: Thyroid Stimulating Hormone 1.30 uIU/mL (0.27-4.20)
[2025-01-08 11:31] VITALS: BP 123/76; PULSE 72; O2SAT 100
--- OUTSIDE RECORDS SUMMARY | 2025-01-10 09:13 | XMS_ITS | Encounter Summary ---
Author Organization [facility] Address [address] [place] [address] Care Team Providers Care Studio Couch Frame Builder Name Role Phone Unavailable Primary Care Provider Unavailabl e Encounter Details Date Type Department Care Team (Latest Contact Info) Description 01/22/2006 Outpatient Historical [facility] Dermatology- [facility] [place] [address] [place] [address] Roger Mcbride MD NO ADDRESS ON FILE Other Atopic Dermatitis and Related Conditions (Primary Dx) Social History Tobacco Use Types Packs/Day Years Used Date Smoking Tobacco: Never Assessed Comments Unknown Sex and Gender Information Value Date Recorded Sex Assigned at Not on file Legal Sex Female 4:36 AM CLIENT ARCHITECT Gender Identity Not on file Sexual Orientation Not on file documented as of this encounter Plan of Treatment Not on file documented as of this encounter Visit Diagnoses Diagnosis Other atopic dermatitis and related conditions- Primary documented in this encounter Additional Health Concerns Infection Onset Date Last Indicated Resolved Time R/O COVID-19 07/18/2020 07/18/2020 07/18/2020 4:47 PM CLIENT ARCHITECT COVID-19 07/18/2020 07/18/2020 08/07/2020 8:08 PM CLIENT ARCHITECT documented as of this encounter
--- OUTSIDE RECORDS SUMMARY | 2025-01-10 09:14 | XMS_ITS | Clinical Summary ---
Author Organization [facility] Address [address] [place] [address] Care Team Providers Care Roustabout Crew Pusher Name Role Phone Unavailable Primary Care Provider Unavailabl e Allergies No known active allergies Medications vitamin-iron fumarate-folic acid 27 mg-0.8 mg Tablet Take 2 Tablets by mouth daily. Active Active Problems Problem Noted Date Diagnosed Date Pleural effusion 07/19/2020 2019 novel coronavirus disease (COVID-19) 2020 Headache in front of head 07/12/2020 Low vitamin D level 2020 Pleuritic chest pain 06/26/2020 Gastroesophageal reflux disease without esophagi tis 06/26/2020 Anxiety state 06/26/2020 Vaginal bleeding during 06/24/2020 Placenta previa antepartum in second trimester 0 06/24/2020 Poor growth affecting management of mother in third trimester 06/24/2020 29 weeks gestation of Severe preeclampsia, third trimester Resolved Problems Problem Noted Date Diagnosed Date Resolved Date Gestational hypertension, third trimester 07/12/2020 07/15/2020 27 weeks gestation of 07/11/2020 28 weeks gestation of 07/15/2020 Immunizations Immunization Administration Dates Next Due (ADACEL/BOOSTRIX)(10 YR UP) TDAP VACCINE, 0.5ML, IM 07/07/2020 (M-M-R II/PRIORIX)(12 MO UP) MEASLES, MUMPS AND RUBELLA VIRUS VACCINE, 0.5 ML IM/SUBCUT 03/09/2006,08/24/2001 (VARIVAX)(12 MOS UP)VARICELL A VIRUS VACCINE (PF) 0.5 ML, SUB CUT 12/31/2003 Dt Dtp Dtap Vaccine 03/09/2006, 2,06/24/2001,2000,2000 HIB, Unspecified Formulation 01/02/2002, 06/24/2001,02/07/2001,2000 Hepatitis B Vaccine 02/18/2001,2000,2000 IPV/OPV 03/09/2006, 2,02/18/2001,2000 Family History Medical History Relation Name Comments Seizures Brother Seizures Father Relation Name Status Comments Brother Father Social History Tobacco Use Types Packs/Day Years Used Date Smoking Tobacco: Never Smokeless Tobacco: Never Alcohol Use Standard Drinks/Week Comments No 0 (1 standard drink = 0.6 oz pur e alcohol) Comments No Sex and Gender Information Value Date Recorded Sex Assigned at Not on file Legal Sex Female 4:36 AM DENTAL MECHANIC Gender Identity Not on file Sexual Orientation Not on file Last Filed Vital Signs Vital Sign Reading Time Taken Comments Blood Pressure 158/98 07/19/2020 1:58 PM DENTAL MECHANIC Pulse 72 07/18/2020 3:00 AM DENTAL MECHANIC Temperature 36.4 C (97.5 F) 07/19/2020 1:58 PM DENTAL MECHANIC Respiratory Rate 22 07/19/2020 1:58 PM DENTAL MECHANIC Oxygen Saturation 97% 07/19/2020 1:58 PM DENTAL MECHANIC Inhaled Oxygen Concentration - - Weight 79.2 kg (174 lb 11.2 oz) 021 12:05 AM DENTAL MECHANIC Height 162.6 cm (5' 4 ) 07/18/2020 8:58 AM DENTAL MECHANIC Body Mass Index 29.99 07/18/2020 8:58 AM DENTAL MECHANIC Plan of Treatment Health Maintenance Due Date Last Done Comments HPV VACCINES (1 - 3-dose series) 2015 CERVICAL CANCER SCREENING 2021 HPV/Cotest (21-29) 2021 PAP SMEAR 2021 INFLUENZA VACCINE (#1) 2024 DTAP/TDAP/TD VACCINES (7 - T d or Tdap) 07/07/2030 07/07/2020, 03/09/2006, 01/02/2002, Additional history exists HEPATITIS B VACCINES Completed 02/18/2001, 2000, 2000 Insurance [facility] MEDICAID [address] [place] [id number] Advance Directives For more information, please contact: [phone] * Full Code (Latest Code Status on File) Date Activated Date Inactivated Comments 07/15/2020 6:45 PM 07/19/2020 4:47 PM
--- OUTSIDE RECORDS SUMMARY | 2025-01-10 09:14 | XMS_ITS | Encounter Summary ---
Author Organization [facility] Address [address] [place] [address] Care Team Providers Care Field Service Supervisor Name Role Phone Rosalia Jenkins Liane SERRANO Primary Care Provider [phone] Encounter Details Date Type Department Care Team (Late Contact Info) Description 12/15/2024 Results Follow-Up [facility] [address] [place] [address] Veronika Samson FNP [address] [place] [address] US BREAST UNI RIGHT COMPLETE Social History Tobacco Use Types Packs/Day Years Used Date Smoking Tobacco: Never Smokeless Tobacco: Never Alcohol Use Standard Drinks/Week Comments Yes 0 (1 standard drink = 0.6 oz pur e alcohol) occasional Comments No Sex and Gender Information Value Date Recorded Sex Assigned at Not on file Legal Sex Female 12:29 PM FACTORY FOCUS TECHNICIAN Gender Identity Not on file Sexual Orientation Not on file documented as of this encounter Plan of Treatment Upcoming Encounters Date Type Department Care Team (Late st Contact Info) Description 01/10/2025 10:20 AM CDT Office Visit [facility] [address] [place] [address] Veronika Samson FNP [address] [place] [address] documented as of this encounter Visit Diagnoses Not on filedocumented in this encounter Care Teams Field Service Supervisor Relationship Specialty Start Date End Date Rosalia Jenkins DO [address] [place] [address] PCP - General Family Practice 09/15/24 documented as of this encounter
--- OUTSIDE RECORDS SUMMARY | 2025-01-10 09:14 | XMS_ITS | Clinical Summary ---
Author Organization [facility] Address [address] Attn: Epic Prelude [place]T [place] [address] Care Team Providers Care University Partnership Rep Name Role Phone Rosalia Jenkins Liane SERRANO Primary Care Provider [phone] Allergies Active Allergy Reactions Criticality Noted Date Comments Penicillins Rash Low 10/14/2023 Medications Clindamycin-Be nzoyl Peroxide 1.2 %(1 % base) -5 % GelIndications :Acne vulgaris Apply to affected area daily. 45 Gram 3 5 Active EPINEPHrine (EPIPEN) 0.3 mg/0.3 mL Auto-InjectorI ndications:All ergic reaction to wasp sting Inject 0.3 mL (0.3 mg) by intramuscular injection 1 time daily as needed for Anaphylaxis. 2 Each 2 5 Active Additional Information Patient not taking.Reported on 11/24/2024 doxycycline hyclate (VIBRAMYCIN) 100 mg tabletIndicati ons:Acne vulgaris Take 1 Tablet (100 mg) by mouth daily. 60 Tablet 5 Active Active Problems Problem Noted Date Diagnosed Date Mixed hyperlipidemia 09/17/2024 Acne vulgaris 09/15/2024 Allergic reaction to wasp sting 09/15/2024 Anxiety state 06/26/2020 Resolved Problems Problem Noted Date Diagnosed Date Resolved Date Pleural effusion 07/19/2020 09/15/2024 2019 novel coronavirus disease (COVID-19) 07/18/2020 09/15/2024 Gestational hypertension, third trimester 07/12/2020 07/15/2020 Headache in front of head 07/12/2020 Low vitamin D level 2020 09/16/19 25 Gastroesophageal reflux dise ase without esophagitis 06/26/2020 09/15/2024 Pleuritic chest pain 06/26/2020 025 Placenta previa antepartum i n second trimester 06/24/2020 09/15/2024 Vaginal bleeding during 06/24/2020 09/15/2024 Poor growth affecting management of mother in third trimester 06/24/2020 09/15/2024 27 weeks gestation of 07/11/2020 28 weeks gestation of 07/15/2020 Severe preeclampsia, third trimester 09/15/2024 29 weeks gestation of 09/15/2024 Encounters Date Type Department Care Team Description 12/15/2024 Results Follow-Up [facility] [address] [place] [address] Veronika Samson, NOTE KEEPER US BREAST UNI RIGHT COMPLETE 12/14/2024 Orders Only [facility] [address] [facility] [address] Veronika Samson, NOTE KEEPER Mass of right breast, unspecified quadrant 12/13/2024 External Device Data STL ABSTRACTION Provider, Abstract 12/13/2024 Telephone [facility] [address] [facility] [place] [address] Rosalia Jenkins, DO Patient Communication 11/28/2024 Telephone [facility] [address] [place] [address] Rosalia Jenkins, DO Medication Question; Patient Communication 11/24/2024 12:20 PM CDT Office Visit [facility] [address] [facility] [place] [address] Veronika Samson, NOTE KEEPER Mass of right breast, unspecified quadrant (Primary Dx); Acute dysfunction of Eustachian tube, left; Acne vulgaris 11/08/2024 Telephone [facility] [address] [place] [address] Rosalia Jenkins, DO Patient Communication 10/19/2024 External Device Data STL ABSTRACTION Provider, Abstract 10/19/2024 External Device Data STL ABSTRACTION Provider, Abstract 10/18/2024 External Device Data STL ABSTRACTION Provider, Abstract 10/17/2024 External Device Data STL ABSTRACTION Provider, Abstract from Last 3 Months Immunizations Immunization Administration Dates Next Due (ADACEL/BOOSTRIX)(10 [...] on file Legal Sex Female 12:29 PM MARKET RESEARCH ASSISTANT Gender Identity Not on file Sexual Orientation Not on file Last Filed Vital Signs Vital Sign Reading Time Taken Comments Blood Pressure 124/66 11/24/2024 12:21 PM CDT Pulse 96 11/24/2024 12:21 PM CDT Temperature 37.4 C (99.3 F) 11/24/2024 12:21 PM CDT Respiratory Rate 18 11/24/2024 12:21 PM CDT Oxygen Saturation 98% 11/24/2024 12:21 PM CDT Inhaled Oxygen Concentration - - Weight 76.9 kg (169 lb 9.6 oz) 11/24/2024 12:21 PM CDT Height 162.6 cm (5' 4 ) 11/24/2024 12:21 PM CDT Body Mass Index 29.11 11/24/2024 12:21 PM CDT Plan of Treatment Upcoming Encounters Date Type Department Care Team (Late st Contact Info) Description 01/10/2025 10:20 AM CDT Office Visit [facility] [place] [address] [place] [address] Veronika Samson, ALEJANDRA [address] [place] [address] Health Maintenance Due Date Last Done Comments HPV VACCINES (1 - 3-dose series) 2015 Preventative Visit-Managed Medicaid 2019 CERVICAL CANCER SCREENING 2021 HPV/Cotest (21-29) 2021 PAP SMEAR 2021 INFLUENZA VACCINE (#1) 2024 DTAP/TDAP/TD VACCINES (7 - T d or Tdap) 07/07/2030 07/07/2020, 03/09/2006, 01/02/2002, Additional history exists HEPATITIS B VACCINES Completed 02/18/2001, 02/18/2001, 2000, Additional history exists Procedures Procedure Name Priority Date/Time Associated Diagnosis Comments US BREAST UNI RIGHT COMPLETE Routine 12/14/2024 Mass of right breast, unspecified quadrant from Last 3 Months Results * US BREAST UNI RIGHT COMPLETE (12/14/2024) Anatomical Region Laterality Modality Breast Right Ultrasound Veronika ROBERTS US ORDERABLES Final Resu lt from Last 3 Months Insurance [facility] MEDICAID Care Teams University Partnership Rep Relationship Specialty Start Date End Date Rosalia Jenkins DO [address] [place] [address] PCP - General Family Practice 09/15/24
== END 2025-01-08 11:32 | disposition home or self-care (01) ==
PROVIDERS: Emergency Provider Emergency Medicine; PCP Nurse Practitioner Family
DX: M25.50 Pain in unspecified joint (principal)
CPT/HCPCS: 36415; 71045; 80053; 81001; 84443; 84703; 85025; 96372; 99284; J1100; J1885

== ENCOUNTER 2025-01-29 00:50 | Emergency (ER) | payer BC, MEDICAID, SELFPAY ==
[2025-01-29 00:52] VITALS: BP 125/84; PULSE 67; RESP 18; TEMP 36.7; O2SAT 100; BMI 29.2
--- OUTSIDE RECORDS SUMMARY | 2025-01-29 00:59 | XMS_ITS | Encounter Summary ---
Author Organization [facility] Address [address] [place] [address] Care Team Providers Care Hide House Supervisor Name Role Phone Rosalia Jenkins DO Primary Care Provider [phone] Encounter Details Date Type Department Care Team (Late st Contact Info) Description 12/15/2024 Results Follow-Up [facility] [address] [place] [address] Veronika Samson FNP [address] [place] [address] US BREAST UNI RIGHT COMPLETE Social History Tobacco Use Types Packs/Day Years Used Date Smoking Tobacco: Never Smokeless Tobacco: Never Alcohol Use Standard Drinks/Week Comments Yes 0 (1 standard drink = 0.6 oz pur e alcohol) occasional Feeling Safe Answer Date Recorded Are you in a relationship wi th someone who hurts you emotionally and/or physically? No 10/14/2023 Comments No Sex and Gender Information Value Date Recorded Sex Assigned at Not on file Legal Sex Female 12:29 PM AUTOMOTIVE COLLISION ESTIMATOR Gender Identity Not on file Sexual Orientation Not on file documented as of this encounter Plan of Treatment Upcoming Encounters Date Type Department Care Team (Late st Contact Info) Description 02/07/2025 10:20 AM CDT Office Visit [facility] [address] [place] [address] Veronika Samson FNP [address] [place] [address] documented as of this encounter Visit Diagnoses Not on filedocumented in this encounter Additional Health Concerns Infection Onset Date Last Indicated Resolved Time R/O GI Pathogen 01/15/2025 01/15/2025 01/15/2025 8 :09 PM CDT documented as of this encounter Care Teams Hide House Supervisor Relationship Specialty Start Date End Date Rosalia Jenkins DO [address] [place] [phone] PCP - General Family Practice 09/15/24 documented as of this encounter
--- OUTSIDE RECORDS SUMMARY | 2025-01-29 00:59 | XMS_ITS | Clinical Summary ---
Author Organization [facility] Address [address] [place] [address] Care Team Providers Care Special Librarian Name Role Phone Unavailable Primary Care Provider [...] on file Legal Sex Female 4:36 AM TALENT PARTNER Gender Identity Not on file Sexual Orientation Not on file Last Filed Vital Signs Vital Sign Reading Time Taken Comments Blood Pressure 158/98 07/19/2020 1:58 PM TALENT PARTNER Pulse 72 07/18/2020 3:00 AM TALENT PARTNER Temperature 36.4 C (97.5 F) 07/19/2020 1:58 PM TALENT PARTNER Respiratory Rate 22 07/19/2020 1:58 PM TALENT PARTNER Oxygen Saturation 97% 07/19/2020 1:58 PM TALENT PARTNER Inhaled Oxygen Concentration - - Weight 79.2 kg (174 lb 11.2 oz) 021 12:05 AM TALENT PARTNER Height 162.6 cm (5' 4 ) 07/18/2020 8:58 AM TALENT PARTNER Body Mass Index 29.99 07/18/2020 8:58 AM TALENT PARTNER Plan of Treatment Health Maintenance Due Date Last Done Comments HPV VACCINES (1 - 3-dose series) 2015 CERVICAL CANCER SCREENING 2021 HPV/Cotest (21-29) 2021 PAP SMEAR 2021 INFLUENZA VACCINE (#1) 2024 DTAP/TDAP/TD VACCINES (7 - T d or Tdap) 07/07/2030 07/07/2020, 03/09/2006, 01/02/2002, Additional history exists HEPATITIS B VACCINES Completed 02/18/2001, 2000, 2000 Insurance [facility] MEDICAID [address] [place] [id number] Advance Directives For more information, please contact: [phone] * Full Code (Latest Code Status on File) Date Activated Date Inactivated Comments 07/15/2020 6:45 PM 07/19/2020 4:47 PM
--- OUTSIDE RECORDS SUMMARY | 2025-01-29 00:59 | XMS_ITS | Clinical Summary ---
Author Organization [facility] Address [address] Attn: Epic Prelude ADT [place] [address] Care Team Providers Care Business Planning Manager Name Role Phone Rosalia Jenkins Liane SERRANO Primary Care Provider [phone]- [phone] Allergies Active Allergy Reactions Criticality Noted Date Comments Penicillins Rash Low 10/14/2023 Medications Clindamycin-Be nzoyl Peroxide 1.2 %(1 % base) -5 % GelIndications :Acne vulgaris Apply to affected area daily. 45 Gram 3 09/16/19 25 Active EPINEPHrine (EPIPEN) 0.3 mg/0.3 mL Auto-InjectorI ndications:All ergic reaction to wasp sting Inject 0.3 mL (0.3 mg) by intramuscular injection 1 time daily as needed for Anaphylaxis. 2 Each 2 09/16/19 25 Active Additional Information Patient not taking.Reported on 01/10/2025 doxycycline hyclate (VIBRAMYCIN) 100 mg tabletIndicati ons:Acne vulgaris Take 1 Tablet (100 mg) by mouth daily. 60 Tablet 09/19/19 25 Active phentermine (ADIPEX P) 37.5 mg tabletIndicati ons:Over weight Take 1 Tablet (37.5 mg) by mouth daily before breakfast. 30 Tablet 2 01/15/20 25 Active phentermine (ADIPEX P) 37.5 mg tabletIndicati ons:Over weight Take 1 Tablet (37.5 mg) by mouth daily before breakfast. 30 Tablet 01/11/20 25 025 Discontin ued(Reord er) Active Problems Problem Noted Date Diagnosed Date Over weight 01/10/2025 Mixed hyperlipidemia 09/17/2024 Acne vulgaris 09/15/2024 Allergic [...] Encounters Date Type Department Care Team Description 01/16/2025 External Device Data STL ABSTRACTION Provider, Abstract 01/16/2025 Telephone [facility] [address] [facility] [place] [phone] Rosalia Jenkins, DO Medication Assistance 01/16/2025 Results Follow-Up [facility] [address] [facility] [address] Veronika Samson FNP GI PATHOGEN PCR PANEL 01/15/2025 Orders Only [facility] [address] [place] [id number] Archana Duarte Muscle ache of extremity; Acute diarrhea 01/11/2025 Orders Only [facility] Health Information Management [place] [address] [facility] [address] Provider, Abstract 01/10/2025 10:20 AM CDT Office Visit [facility] [address] [place] [address] Veronika Samson, MANAGER PERFORMANCE Muscle ache of extremity (Primary Dx); Recent urinary tract infection; Acute diarrhea; Breast pain, right; Over weight 01/10/2025 Refill [facility] [address] [place] [address] Rosalia Jenkins, Over weight (Primary Dx) 01/10/2025 Refill [facility] [address] [place] [address] Rosalia Jenkins, Over weight 12/15/2024 Results Follow-Up [facility] [address] [place] [address] Veronika Samson, MANAGER PERFORMANCE US BREAST UNI RIGHT COMPLETE 12/14/2024 Orders Only [facility] [address] [place] [address] Veronika Samson, MANAGER PERFORMANCE Mass of right breast, unspecified quadrant 12/13/2024 External Device Data STL ABSTRACTION Provider, Abstract 12/13/2024 Telephone [facility] [address] [place] [address] Rosalia Jenkins, DO Patient Communication 11/28/2024 Telephone [facility] [address] [place] [address] Rosalia Jenkins, Medication Question; Patient Communication 11/24/2024 12:20 PM CDT Office Visit [facility] [address] [place] [address] Veronika Samson, MANAGER PERFORMANCE Mass of right breast, unspecified quadrant (Primary Dx); Acute dysfunction of Eustachian tube, left; Acne vulgaris 11/08/2024 Telephone [facility] [address] [place] [address] Rosalia Jenkins, DO Patient Communication from Last 3 Months Immunizations Immunization Administration [...] on file Legal Sex Female 12:29 PM GLOVE FACTORY 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 Gender Identity Not on file Sexual Orientation Not on file Last Filed Vital Signs Vital Sign Reading Time Taken Comments Blood Pressure 122/70 01/10/2025 10:22 AM CDT Pulse 98 01/10/2025 10:22 AM CDT Temperature 36.8 C (98.2 F) 01/10/2025 10:22 AM CDT Respiratory Rate 17 01/10/2025 10:22 AM CDT Oxygen Saturation 99% 01/10/2025 10:22 AM CDT Inhaled Oxygen Concentration - - Weight 79 kg (174 lb 3.2 oz) 01/10/2025 10:22 AM CDT Height 162.6 cm (5' 4 ) 01/10/2025 10:22 AM CDT Body Mass Index 29.9 01/10/2025 10:22 AM CDT Plan of Treatment Upcoming Encounters Date Type Department Care Team (Late st Contact Info) Description 02/07/2025 10:20 AM CDT Office Visit [facility] [address] [place] [address] Noel Samsonyudytammy Newby, [facility] [address] [facility] [place] [facility] [place] [address] Health Maintenance Due Date Last Done [...] Procedure Name Priority Date/Time Associated Diagnosis Comments GI PATHOGEN PCR PANEL Routine 01/15/2025 8:27 AM CDT Muscle ache of extremity Acute diarrhea COMPREHENSIVE METABOLIC PANEL Routine 01/08/2025 10:11 AM CDT US BREAST UNI RIGHT COMPLETE Routine 12/14/2024 Mass of right breast, unspecified quadrant from Last 3 Months Results * GI PATHOGEN PCR PANEL (01/15/2025 8:27 AM CDT) GI Pathogen PCR panel NOT DETECTED No nucleic acids detected. 01/15/2025 8:09 PM CDT [facility] Stool STOOL SPECIMEN / Unknown Collection / Unknown 01/15/2025 8:27 AM CDT 01/15/2025 5:26 PM CDT Narrative [facility] - 01/15/2025 8:09 PM CDT The Film Array GI Panel is a multiplexed nucleic acid detection test for 22 targets of bacteria, viruses, and parasites in stool that cause infectious diarrhea. Bacteria: Campylobacter C. difficile Plesiomonas shigelloides Salmonella Vibrio Vibrio cholerae Yersinia enterocolitica Enteroaggregative E. Coli (EAEC) Enteropathogenic E. Coli (EPEC) Enterotoxigenic E. Coli (ETEC) Shiga-like toxin-producing E. Coli (STEC) E. Coli O157 Shigella/Enteroinvasive E. Coli (EIEC) Viruses: Adenovirus F 40/41 Astrovirus Norovirus GI/GII Rotavirus A Sapovirus Parasites: Cryptosporidium Cyclospora cayetanensis Entamoeba histolytica Giardia duodenalis Veronika Samson [facility] MICROBIOLOGY - GENERAL ORD ERABLES Final Result [facility] CLIA # [id number] [address] [place] [address] * COMPREHENSIVE METABOLIC PANEL (01/08/2025 10:11 AM CDT) Blood Abstract Provider CHEMISTRY ORDERABLES Final Res ult * US BREAST UNI RIGHT COMPLETE (12/14/2024) Anatomical Region Laterality Modality Breast Right Ultrasound Veronika Samson [facility] US ORDERABLES Final Resu lt from Last 3 Months Insurance [facility] MEDICAID Care Teams Business Planning Manager Relationship Specialty Start Date End Date Rosalia Jenkins DO [address] [place] [phone] PCP - General Family Practice 09/15/24
--- OUTSIDE RECORDS SUMMARY | 2025-01-29 00:59 | XMS_ITS | Encounter Summary ---
Author Organization [facility] Address [address] [place] [address] Care Team Providers Care Pediatric Np Name Role Phone Unavailable Primary Care Provider Unavailabl e Encounter Details Date Type Department Care Team (Latest Contact Info) Description 01/22/2006 Outpatient Historical [facility] Dermatology- [facility] [place] [address] [place] [address] Roger Mcbride MD NO ADDRESS ON FILE Other Atopic Dermatitis and Related Conditions (Primary Dx) Social History Tobacco Use Types Packs/Day Years Used Date Smoking Tobacco: Never Assessed Comments Unknown Sex and Gender Information Value Date Recorded Sex Assigned at Not on file Legal Sex Female 4:36 AM CONSTRUCTION PROJECT ASSISTANT Gender Identity Not on file Sexual Orientation Not on file documented as of this encounter Plan of Treatment Not on file documented as of this encounter Visit Diagnoses Diagnosis Other atopic dermatitis and related conditions- Primary documented in this encounter Additional Health Concerns Infection Onset Date Last Indicated Resolved Time R/O COVID-19 07/18/2020 07/18/2020 07/18/2020 4:47 PM CONSTRUCTION PROJECT ASSISTANT COVID-19 07/18/2020 07/18/2020 08/07/2020 8:08 PM CONSTRUCTION PROJECT ASSISTANT documented as of this encounter
--- NOTE | 2025-01-29 01:03 | ECG_ITS ---
[facility] Date: 2025-01-29 Pat Name: Shannan Valdovinos Department: Room: Gender: Female Medical Records Manager: : 2000 Requested By: Migel Sales Order Number: [id number] Person MD: Huber Beltre M.D. Measurements Intervals Sharon Rate: 83 P: 43 NV: 120 QRS: 67 QRSD: 76 T: 19 QT: 357 QTc: 421 Interpretive Statements SINUS RHYTHM WITH SINUS ARRHYTHMIA NONSPECIFIC ST & T-WAVE ABNORMALITY Compared to ECG 08/23/2024 11:47:51 NO SIGNIFICANT CHANGE Electronically Signed On 01-29-2025 13:34:34 CDT by Huber Beltre M.D. [email or web address]
[2025-01-29 02:01] VITALS: BP 120/80; PULSE 92; RESP 20; O2SAT 97
--- NOTE | 2025-01-29 02:14 | XRR_ITS ---
PROCEDURE INFORMATION: Exam: XR Chest Exam date and time: 01/29/2025 2:13 AM Age: 24 years old Clinical indication: Chest pressure; C/O chest pain; Additional info: Cp TECHNIQUE: Imaging protocol: Radiologic exam of the chest. Views: 1 view. COMPARISON: CR XR chest 1V portable [id number] 01/08/2025 10:15 AM FINDINGS: Lungs: Unremarkable. No consolidation. Pleural spaces: Unremarkable. No pleural effusion. No pneumothorax. Heart/Mediastinum: Unremarkable. No cardiomegaly. Bones/joints: Unremarkable. XR/XR chest 1V portable [id number] IMPRESSION: No acute findings.
[2025-01-29 02:30] VITALS: BP 117/82; PULSE 79; RESP 18; O2SAT 98
[2025-01-29 02:35] LABS: Hematocrit 38.8 % (36-47); Hemoglobin 13.70 g/dL (11.27-16.99); Mean Corpuscular HGB Conc 35.3 g/dL (30-55); Mean Corpuscular Hemoglobin 31.0 pg (27-33); Mean Corpuscular Volume 87.8 fl (85-98); Nucleated Red Blood Cells % 0 %; Platelet Count 299 10^3/cmm (157-399); Red Blood Count 4.42 10^6/uL (3.85-5.65); White Blood Count 7.89 10^3/uL (3.29-11.43)
[2025-01-29 02:53] LABS: Troponin(5th) Baseline < 6 ng/L (0-10)
[2025-01-29 02:54] LABS: Alanine Aminotransferase 22 U/L (0-33); Albumin Level 4.1 g/dL (3.5-5.2); Alkaline Phosphatase 77 U/L (35-105); Anion Gap 16.6 (5-19); Aspartate Amino Transferase 15 U/L (0-32); Blood Urea Nitrogen 7 mg/dL (6-20); Calcium 9.0 mg/dL (8.5-10.5); Carbon Dioxide 23 mmol/L (22-29); Chloride 103 mmol/L (98-107); Creatinine Clr Calc Pharmacy 145.3081; Globulin 3.1 g/dL (1.3-4.6); Glucose 89 mg/dL (65-115); Lipase 16 U/L (13-60); Osmolality Calculated 285 mOsm/kg (285-295); Potassium 3.6 mmol/L (3.5-5.1); Sodium 139 mmol/L (136-145); Total Protein 7.2 g/dL (6.6-8.7)
[2025-01-29 02:56] LABS: HCG, Serum Qual Negative (Negative)
[2025-01-29 03:00] VITALS: BP 112/83; PULSE 75; O2SAT 97
[2025-01-29 03:28] VITALS: BP 122/74; PULSE 72; O2SAT 96
--- NOTE | 2025-01-29 03:35 | ED_ITS ---
HPI - Chest Pain 2 General: Chief Complaint: Chest Pain Stated Complaint: Medicine Causing Pain In Chest Time Seen by Provider: 01/29/25 02:26 History of Present Illness: Patient is a 24-year-old female who presents to the emergency department with chest pain that began after starting a new medication, phentermine, approximately 1.5 weeks ago. She reports the chest pain has been present since initiating the medication but worsened tonight around 10 PM while trying to fall asleep. She describes earlier symptoms as 'flutters' with a fast heart rate, but tonight experienced a squeezing sensation in her chest 'like somebody was squeezing my heart' and feeling 'like it was going to explode.' The pain radiated to her left arm and back, and she reports feeling her heartbeat through her back. She had mild dyspnea with deep breathing but denies difficulty with normal breathing. Patient delayed seeking care initially but presented to the ED around midnight when symptoms worsened. She reports improvement in symptoms at the time of examination. Last dose of phentermine was taken this morning at 8:30 AM. She denies fever, cough, nausea, vomiting. She does report vaping nicotine. Related Data Home Medications ?Medication ?Instructions ?Recorded ?Confirmed doxycycline hyclate 100 mg capsule 100 mg PO DAILY 09/2201/07/25 Previous Rx's ?Medication ?Instructions ?Recorded clindamycin phosphate 1 % lotion 1 applic topical ASHLEY Y #60 mL 09/13/23 (Cleocin T) ibuprofen 800 mg tablet 800 mg PO Q8H PRN pain #30 t abs 11/06/24 cetirizine 10 mg tablet 10 mg PO DAILY #30 tabs 10/29 01/22 cetirizine 10 mg tablet (Zyrtec) 10 mg PO DAILY PRN al lergy 01/05/25 symptoms #30 tabs Allergies Allergy/AdvReac Type Severity Reaction Status Date / Time amoxicillin Allergy ALGY-Rash Verified 01/29/25 01:03 Review of Systems 2 Narrative: Constitutional: Denies fever Cardiovascular: Positive for chest pain, palpitations, and sensation of rapid heartbeat. Pain radiates to left arm and back Respiratory: Mild dyspnea with deep breathing only, denies difficulty with normal breathing, denies cough Gastrointestinal: Denies nausea and vomiting Reproductive: Denies [facility] 2 PFSH: Medical History (Updated 01/29/25 @ 03:04 by Migel Hines DO) Viral syndrome Allergic rhinitis due to allergen Acne Situational anxiety Surgical History H/O section Family History Mother Smoker Hypertension Denies family history of Colon cancer Ovarian cancer Diabetes Heart disease Hyperlipidemia Breast cancer Uterine cancer Thyroid disease Stroke Social History Smoking and tobacco/nicotine status: never used tobacco/nicotine Second hand smoke exposure: No Alcohol intake: current Alcohol intake frequency: holidays/special occasions only Substance/Drug Use: never Adopted: No Caregiver/support person: No Lives independently: Yes Household members: family Housing: House Marital status: Single Number of children: 1 Highest education level completed: High School Graduate service: No Current occupational status: employed Female Reproductive History: Date of last menstrual period: 01/29/25 Para: 1 Spontaneous abortions: Yes Physical Exam 2 Const: COMMON NORMALS: no acute distress GENERAL APPEARANCE: cooperative; not ill appearing and not frail appearing HENMT: COMMON NORMALS: normocephalic, atraumatic and Normal external nose present HEAD & SCALP: normocephalic and atraumatic FACE & SINUS: normal facial exam and face symmetric NOSE: Normal external nose present Eye: COMMON NORMALS: Equal, round and reactive pupils present and EOMs intact bilaterally PUPIL: Yes Equal, round and reactive pupils present Neck/C-Spine: GENERAL: Yes trachea midline Chest: CHEST: Yes Symmetrical chest wall rise Resp: COMMON NORMALS: normal respiratory effort, No retractions, No use of accessory muscles and clear to auscultation bilaterally AUSCULTATION: clear to auscultation bilaterally Cardio: COMMON NORMALS: regular rate and regular rhythm RATE: regular rate RHYTHM: regular rhythm GI: COMMON NORMALS: Normal to inspection, nondistended, normoactive bowel sounds present Extremity: COMMON NORMALS: no pedal edema Neuro: PATRICK COMA SCALE: document GCS findings Patrick coma scale eye opening: Spontaneous [place] coma scale verbal response: Orientated [place] coma scale motor response: Obey commands Patrick coma scale total score: 15 S ENSORY EXAM: Yes extremities (intact) Psych: COMMON NORMALS: speech normal SPEECH: Yes normal speech Skin: COMMON NORMALS: no rashes or lesions noted GENERAL SKIN EXAM: no rashes or lesions noted Course 2 Vital Signs: Vital signs: Vital Signs Temperature 98.1 F 01/29/25 00:52 Pulse Rate 72 01/29/25 03:28 Respiratory Rate 18 01/29/25 02:30 Blood Pressure 122/74 01/29/25 03:28 Pulse Oximetry 96 01/29/25 03:28 Oxygen Delivery Me thod Room Air 01/29/25 02:30 MDM - Chest Pain Medical Decision Making Symptoms are improved here without treatment. Vitals are normal. She is not hypoxic, not tachycardic. EKG a sinus rhythm with sinus arrhythmia. Rate is 80. [place] is normal. Intervals are normal. No acute ST wave changes. Chest x- ray is normal. CBC BMP are normal. Her troponin is not detectable. Lipase is normal. She is not . With improvement in her symptoms, which are self resolved, she will be discharged. She will stop her phentermine until she discusses her symptoms with her doctor. She will return for any worsening symptoms. Lab Data 01/29/25 01:58 01/29/25 01:58 Radiology Impressions Chest X-Ray 01/29/25 02:14 IMPRESSION: No acute findings. Laboratory Results WBC 7.89 10^3/uL (3.29-11.43) 01/29/25 01:58 RBC 4.42 10^6/uL (3.85-5.65) 01/29/25 01:58 Hgb 13.70 g/dL (11.27-16.99) 01/29/25 01:58 Hct 38.8 % (36-47) 01/29/25 01:58 MCV 87.8 fl (85-98) 01/29/25 01:58 MCH 31.0 pg (27-33) 01/29/25 01:58 MCHC 35.3 g/dL (30-55) 01/29/25 01:58 RDW 11.8 % (12.1-15.1) L 01/29/25 01:58 Plt Count 299 10^3/cmm (157-399) 01/29/25 01:58 MPV 9.5 fL (7.4-10.4) 01/29/25 01:58 Neut % (Auto) 59.3 % 01/29/25 01:58 Lymph % (Auto) 29.5 % 01/29/25 01:58 [place] % (Auto) 8.2 % 01/29/25 01:58 Eos % (Auto) 2.2 % 01/29/25 01:58 Baso % (Auto) 0.5 % 01/29/25 01:58 Neut # (Auto) 4.68 10^3/uL (1.8-7.7) 01/29/25 01:58 Lymph # (Auto) 2.3 10^3/uL (0.8-4.8) 01/29/25 01:58 [place] # (Auto) 0.7 10^3/uL (0.2-0.9) 01/29/25 01:58 Eos # (Auto) 0.2 10^3/uL (0.0-0.8) 01/29/25 01:58 Baso # (Auto) 0.0 10^3/uL (0.0-0.1) 01/29/25 01:58 Nucleated RBC % (auto) 0 % 01/29/25 01:58 Nucleated RBCs # 0.0 /100WBC 01/29/25 01:58 Sodium 139 mmol/L (136-145) 01/29/25 01:58 Potassium 3.6 mmol/L (3.5-5.1) 01/29/25 01:58 Chloride 103 mmol/L (98-107) 01/29/25 01:58 Carbon Dioxide 23 mmol/L (22-29) 01/29/25 01:58 Anion Gap 16.6 (5-19) 01/29/25 01:58 BUN 7 mg/dL (6-20) 01/29/25 01:58 Creatinine 0.6 mg/dL (0.5-0.9) 01/29/25 01:58 GFR Calculation 122.8 mL/min (90-130) 01/29/25 01:58 Glucose 89 mg/dL (65-115) 01/29/25 01:58 Calculated Osmolality 285 mOsm/kg (285-295) 01/29/25 01:58 Calcium 9.0 mg/dL (8.5-10.5) 01/29/25 01:58 Total Bilirubin 0.3 mg/dL (0.15-1.2) 01/29/25 01:58 AST 15 U/L (0-32) 01/29/25 01:58 ALT 22 U/L (0-33) 01/29/25 01:58 Alkaline Phosphatase 77 U/L (35-105) 01/29/25 01:58 Troponin T Baseline < 6 ng/L (0-10) 01/29/25 01:58 Troponin T 120 Minute Cancelled 01/29/25 03:58 Delta Troponin T Cancelled 01/29/25 03:58 Total Protein 7.2 g/dL (6.6-8.7) 01/29/25 01:58 Albumin 4.1 g/dL (3.5-5.2) 01/29/25 01:58 Globulin 3.1 g/dL (1.3-4.6) 01/29/25 01:58 Lipase 16 U/L (13-60) 01/29/25 01:58 HCG, Qual Negative (Negative) 01/29/25 01:58 All radiology interpretation(s) finalized by discharge Discharge Plan Discharge Patient Disposition: Home Clinical Impression: Chest pain Condition: Stable Prescriptions: No Action clindamycin phosphate [Cleocin T] 1 % lotion 1 applic topical DAILY Qty: 60 0RF ibuprofen 800 mg tablet 800 mg PO Q8H PRN (Reason: pain) Qty: 30 0RF cetirizine 10 mg tablet 10 mg PO DAILY Qty: 30 0RF doxycycline hyclate 100 mg capsule 100 mg PO DAILY cetirizine [Zyrtec] 10 mg tablet 10 mg PO DAILY PRN (Reason: allergy symptoms) Qty: 30 0RF Discharge Orders: Discharge ED (Routine); Ordered 01/29/25 Ordered By: Migel Hines Referrals: Veronika Samson FNP [Primary Care Provider] - 1-3 days Patient Instructions: Chest Pain (ED), Heart Palpitations (ED), Opioid Safety, Pain Management, Patient Portal & Miguel A Instructions Activity Restrictions/Additional Instructions: Stop your phentermine for the time being until you are able to speak with your doctor. Return for worsening pain, shortness of breath, fever, other concerning symptoms. Print Language: Uzbek Coding Level of Care Code ED Rv Servicer for Henok Snowden
== END 2025-01-29 03:19 | disposition home or self-care (01) ==
PROVIDERS: Emergency Provider Emergency Medicine; PCP Nurse Practitioner Family
DX: R07.9 Chest pain, unspecified (principal)
CPT/HCPCS: 71045; 80053; 83690; 84484; 84703; 85025; 93005; 96374; 99285; J1885

== ENCOUNTER → 2025-02-15 18:54 | Outpatient (BNVA) | payer BC, SELFPAY | PROVIDERS: PCP Nurse Practitioner Family; Visit Provider Emergency Medicine | DX: R39.9 Unspecified symptoms and signs involving the genitourinary system (principal) | CPT/HCPCS: 81000; 87086 ==

== ENCOUNTER → 2025-05-20 10:23 | Outpatient (BNVA) | payer BC, SELFPAY | PROVIDERS: PCP Nurse Practitioner Family | DX: J11.1 Influenza due to unidentified influenza virus with other respiratory manifestations (principal) | CPT/HCPCS: 87400; 87880 ==